=== PATIENT | male | born 1960 | race Caucasian/White ===

== ENCOUNTER 2017-06-08 11:07 | Inpatient (IN) | payer MEDICAID, OTHER ==
[~2017-06-08] VITALS: Ht 182.9 cm; Wt 157.1 kg
[2017-06-08 11:49] LABS: Basophils # (auto) 0.1 uL; Basophils % (auto) 0.7 % (0.0-2.0); CONDITION Y; DEFINITIVE SEE PRINTOUT; Eosinophils # (auto) 0.1 uL; Eosinophils % (auto) 0.7 % (0.0-7.0); Hematocrit 40.6 % (41.0-53.0); Hemoglobin 12.8 g/dL (13.5-17.5); Lymphocytes # (auto) 1.4 uL; Lymphocytes % (auto) 9.6 % (10.0-50.0); Mean Corpuscular Hemoglobin 20.8 pg (28.0-32.0); Mean Corpuscular Hgb Conc. 31.5 g/dL (32.0-36.0); Mean Corpuscular Volume 66.3 fL (80.0-100.0); Mean Platelet Volume 8.8 fL (7.4-10.4); Monocytes # (auto) 1.4 uL; Neutrophils # (auto) 11.1 uL; Platelet Count (auto) 393 10^3/uL (140-450); White Blood Cell 14.1 10^3/uL (4.4-10.8)
[2017-06-08 11:59] LABS: Red Cell Distribution Width 21.2 % (11.6-16.0)
[2017-06-08 12:08] LABS: Platelet Estimate Adequate
[2017-06-08 12:09] LABS: Anisocytosis Moderate; Hypochromia Moderate; Microcytosis Moderate; Ovalocytes FEW
[2017-06-08 12:14] LABS: Albumin 3.1 g/dL (3.4-5.0); Alkaline Phosphatase 93 U/L (45-117); Anion Gap 5 (5-15); Aspartate Aminotransferase 14 U/L (15-37); BUN/Creatinine Ratio 23.3; Bilirubin, Total 0.5 mg/dL (0.2-1.0); Blood Urea Nitrogen 14 mg/dL (7-18); Calcium 8.3 mg/dL (8.5-10.1); Carbon Dioxide 29 mmol/L (21-32); Chloride 104 mmol/L (98-107); GFR African American 178 mL/min; GFR Non-African American 147 mL/min; Glucose 87 mg/dL (74-106); INR 0.98 (0.9-1.15); Magnesium 2.4 mg/dL (1.6-2.6); Partial Thromboplastin Time 29.5 sec (22.64-33.71); Potassium 3.9 mmol/L (3.5-5.1); Prothrombin Time 10.7 sec (9.37-12.3); Sodium 138 mmol/L (136-145); Total Protein 7.4 g/dL (6.4-8.2)
[2017-06-08] MEDS ORDERED: FUROSEMIDE 40 MG/4 ML VIAL IV ONE (12:45)
[2017-06-08 12:52] LABS: B-Type Natriuretic Peptide 33.8 pg/mL (0-100)
[2017-06-08 12:58] LABS: Temperature: 24.3 C (20.0-25.0)
[2017-06-08] MEDS ORDERED: POTASSIUM CHL 10 Meq TABLET PO ONE (13:00)
[2017-06-08] MEDS ORDERED: DOCUSATE SOD 100 MG CAP PO PRN (13:15)
[2017-06-08] MEDS ORDERED: cefTRIAXone 1GM/50ML D5W 50 ML IV ONE (13:15)
[2017-06-08] MEDS ORDERED: amLODIPine BESYLATE 5 MG TAB PO ONE (13:15)
[2017-06-08] MEDS ORDERED: TEMAZEPAM 15 MG CAP PO PRN (13:15)
[2017-06-08] MEDS ORDERED: cloNIDine HCL 0.1 MG TAB PO PRN (13:15)
[2017-06-08] MEDS ORDERED: CARVEDILOL 3.125 MG TAB PO ONE (13:15)
[2017-06-08] MEDS ORDERED: ACETAMINOPHEN 325 MG TAB PO PRN (13:15)
[2017-06-08] MEDS ORDERED: ONDANSETRON HCL 4 MG/2 ML VIAL IV PRN (13:15)
[2017-06-08] MEDS ORDERED: NITROGLYCERIN 0.4 MG SL TAB SL PRN (13:15)
[2017-06-08] MEDS ORDERED: HYDROcodone-ACET 5/325MG TAB PO PRN (13:15)
[2017-06-08] MEDS ORDERED: MORPHINE SULF INJ 2 MG/ML SYRINGE 1ML IV PRN ×2 (13:15)
[2017-06-08] MEDS: SODIUM CHLOR 0.9% PF (SALINE LOCK) 10ML VIAL IV SCH (13:47)
[2017-06-08] MEDS: ENOXAPARIN SOD 40 MG/0.4 ML SYRINGE SC SCH (13:47)
[2017-06-08 14:15] VITALS: BP 106/65
[2017-06-08 16:47] VITALS: BP 138/84
[2017-06-08] MEDS: CLINDAMYCIN 300MG IV 50 ML IV SCH ×2 (18:07→21:58)
[2017-06-08] MEDS: FUROSEMIDE 40 MG/4 ML VIAL IV SCH (18:26)
[2017-06-08] MEDS: BOOST PLUS 8 ounce PO SCH (18:26)
[2017-06-08] MEDS: ALBUTEROL SULF 2.5 MG/0.5ML(0.5%) NEB SOLN NEB SCH (19:34)
[2017-06-08] MEDS: IPRATROPIUM BROM 0.5 MG/2.5ML INH SOL NEB SCH (19:34)
[2017-06-08 19:41] VITALS: BP 138/84
[2017-06-08 21:40] VITALS: BP 130/83
[2017-06-08] MEDS: POTASSIUM CHL 10 Meq TABLET PO SCH (21:57)
[2017-06-08] MEDS: CARVEDILOL 3.125 MG TAB PO SCH (21:58)
[2017-06-09] MEDS: ALBUTEROL SULF 2.5 MG/0.5ML(0.5%) NEB SOLN NEB SCH ×4 (00:09→19:38)
[2017-06-09] MEDS: IPRATROPIUM BROM 0.5 MG/2.5ML INH SOL NEB SCH ×4 (00:09→19:38)
[2017-06-09] MEDS: SODIUM CHLOR 0.9% PF (SALINE LOCK) 10ML VIAL IV SCH ×4 (01:59→23:03)
[2017-06-09 05:16] VITALS: BP 125/75
[2017-06-09] MEDS: CLINDAMYCIN 300MG IV 50 ML IV SCH ×3 (05:49→23:03)
[2017-06-09] MEDS: FUROSEMIDE 40 MG/4 ML VIAL IV SCH ×2 (05:50→17:59)
[2017-06-09 06:29] LABS: Basophils # (auto) 0 uL; Basophils % (auto) 0.3 % (0.0-2.0); CONDITION Y; DEFINITIVE SEE PRINTOUT; Eosinophils # (auto) 0.1 uL; Eosinophils % (auto) 0.5 % (0.0-7.0); Hematocrit 39.8 % (41.0-53.0); Hemoglobin 12.2 g/dL (13.5-17.5); Lymphocytes % (auto) 8.3 % (10.0-50.0); Mean Corpuscular Hemoglobin 20.7 pg (28.0-32.0); Mean Corpuscular Hgb Conc. 30.8 g/dL (32.0-36.0); Mean Corpuscular Volume 67.1 fL (80.0-100.0); Mean Platelet Volume 9.4 fL (7.4-10.4); Monocytes % (auto) 7.8 % (0.0-12.0); Neutrophils # (auto) 10.5 uL; Neutrophils % (auto) 83.1 % (37.0-80.0); Platelet Count (auto) 358 10^3/uL (140-450); White Blood Cell 12.6 10^3/uL (4.4-10.8)
[2017-06-09 06:35] LABS: Red Cell Distribution Width 20.9 % (11.6-16.0)
[2017-06-09 06:49] LABS: Bilirubin, Total 0.4 mg/dL (0.2-1.0); Calcium 8.1 mg/dL (8.5-10.1); Total Protein 7.2 g/dL (6.4-8.2)
[2017-06-09 06:53] LABS: Platelet Estimate Adequate
[2017-06-09 06:55] LABS: Anisocytosis Moderate; Hypochromia Moderate; Microcytosis Marked
[2017-06-09 06:56] LABS: Hypersegmented Neutrophils Present; Ovalocytes FEW
[2017-06-09 07:00] LABS: Urine Bilirubin Negative (Negative); Urine Blood Negative /uL (Negative); Urine Color Yellow (Yellow); Urine Glucose Normal (Normal); Urine Mucus FEW (None Seen); Urine Nitrite Negative (Negative); Urine RBC 2 /hpf (0 - 3); Urine Squamous Epithelial Cell FEW /hpf (<5); Urine Urobilinogen Normal (Negative)
[2017-06-09 07:01] LABS: Urine Ketone 1+ (Negative)
[2017-06-09 08:00] VITALS: BP 127/78
[2017-06-09] MEDS: BOOST PLUS 8 ounce PO SCH ×3 (08:00→18:00)
[2017-06-09] MEDS: cefTRIAXone 1GM/50ML D5W 50 ML IV SCH (10:31)
[2017-06-09] MEDS: POTASSIUM CHL 10 Meq TABLET PO SCH ×2 (10:32→23:05)
[2017-06-09] MEDS: CARVEDILOL 3.125 MG TAB PO SCH ×2 (10:32→23:04)
[2017-06-09] MEDS: MULTIPLE VITAMIN TAB PO SCH (10:33)
[2017-06-09] MEDS: amLODIPine BESYLATE 5 MG TAB PO SCH (10:33)
[2017-06-09] MEDS: ENOXAPARIN SOD 40 MG/0.4 ML SYRINGE SC SCH (11:25)
[2017-06-09 13:30] VITALS: BP 128/81
[2017-06-09 17:21] VITALS: BP 136/60
[2017-06-09 22:00] VITALS: BP 142/83
[2017-06-10] MEDS: IPRATROPIUM BROM 0.5 MG/2.5ML INH SOL NEB SCH ×4 (00:10→19:33)
[2017-06-10] MEDS: ALBUTEROL SULF 2.5 MG/0.5ML(0.5%) NEB SOLN NEB SCH ×4 (00:10→19:33)
[2017-06-10 05:00] VITALS: BP 146/81
[2017-06-10] MEDS: CLINDAMYCIN 300MG IV 50 ML IV SCH ×2 (05:48→14:00)
[2017-06-10] MEDS: SODIUM CHLOR 0.9% PF (SALINE LOCK) 10ML VIAL IV SCH ×4 (05:49→21:17)
[2017-06-10] MEDS: FUROSEMIDE 40 MG/4 ML VIAL IV SCH ×2 (05:49→18:46)
[2017-06-10 06:44] LABS: Basophils # (auto) 0 uL; Basophils % (auto) 0.4 % (0.0-2.0); CONDITION Y; DEFINITIVE SEE PRINTOUT; Eosinophils # (auto) 0.1 uL; Eosinophils % (auto) 0.6 % (0.0-7.0); Hematocrit 39.5 % (41.0-53.0); Hemoglobin 12.2 g/dL (13.5-17.5); Lymphocytes # (auto) 1.2 uL; Lymphocytes % (auto) 11.4 % (10.0-50.0); Mean Corpuscular Hemoglobin 20.8 pg (28.0-32.0); Mean Corpuscular Volume 67.2 fL (80.0-100.0); Mean Platelet Volume 9.3 fL (7.4-10.4); Monocytes # (auto) 0.8 uL; Monocytes % (auto) 7.8 % (0.0-12.0); Neutrophils # (auto) 8.6 uL; Neutrophils % (auto) 79.8 % (37.0-80.0); Platelet Count (auto) 358 10^3/uL (140-450); White Blood Cell 10.8 10^3/uL (4.4-10.8)
[2017-06-10 06:58] LABS: Red Cell Distribution Width 21.4 % (11.6-16.0)
[2017-06-10 07:16] LABS: Potassium 4.3 mmol/L (3.5-5.1)
[2017-06-10 07:29] LABS: BUN/Creatinine Ratio 31.1; Calcium 8.4 mg/dL (8.5-10.1)
[2017-06-10 07:34] LABS: Bilirubin, Total 0.4 mg/dL (0.2-1.0); Total Protein 7.1 g/dL (6.4-8.2)
[2017-06-10 07:40] LABS: Microcytosis Marked; Platelet Estimate Adequate
[2017-06-10 07:41] LABS: Anisocytosis Moderate; Ovalocytes MODERATE
[2017-06-10 07:42] LABS: Hypochromia Moderate
[2017-06-10] MEDS: BOOST PLUS 8 ounce PO SCH ×3 (08:00→18:29)
[2017-06-10 09:00] VITALS: BP 127/93
[2017-06-10] MEDS: cefTRIAXone 1GM/50ML D5W 50 ML IV SCH (09:00)
[2017-06-10] MEDS: CARVEDILOL 3.125 MG TAB PO SCH ×2 (09:59→21:17)
[2017-06-10] MEDS: amLODIPine BESYLATE 5 MG TAB PO SCH (09:59)
[2017-06-10] MEDS: MULTIPLE VITAMIN TAB PO SCH (09:59)
[2017-06-10] MEDS: POTASSIUM CHL 10 Meq TABLET PO SCH (09:59)
[2017-06-10] MEDS: ENOXAPARIN SOD 40 MG/0.4 ML SYRINGE SC SCH (10:00)
[2017-06-10 13:00] VITALS: BP 140/68
[2017-06-10 17:00] VITALS: BP 133/87
[2017-06-10] MEDS: POTASSIUM CHL 20 Meq TABLET PO SCH (21:17)
[2017-06-10 22:00] VITALS: BP 118/76
[2017-06-10] MEDS: CEPHALEXIN 250 MG CAP PO SCH (22:43)
[2017-06-11] MEDS: methylPREDNISolone SOD SUCC 125 MG/2 ML VL IV SCH ×5 (00:11→23:37)
[2017-06-11 05:00] VITALS: BP 165/96
[2017-06-11] MEDS: FUROSEMIDE 40 MG/4 ML VIAL IV SCH ×3 (05:31→17:25)
[2017-06-11] MEDS: SODIUM CHLOR 0.9% PF (SALINE LOCK) 10ML VIAL IV SCH ×3 (05:31→21:25)
[2017-06-11] MEDS: CEPHALEXIN 250 MG CAP PO SCH ×4 (05:32→23:06)
[2017-06-11] MEDS: IPRATROPIUM BROM 0.5 MG/2.5ML INH SOL NEB SCH ×4 (06:24→19:01)
[2017-06-11] MEDS: ALBUTEROL SULF 2.5 MG/0.5ML(0.5%) NEB SOLN NEB SCH ×4 (06:24→19:01)
[2017-06-11] MEDS: BOOST PLUS 8 ounce PO SCH ×3 (08:00→17:33)
[2017-06-11 09:00] VITALS: BP 158/98
[2017-06-11] MEDS: ENOXAPARIN SOD 40 MG/0.4 ML SYRINGE SC SCH (10:00)
[2017-06-11] MEDS: MULTIPLE VITAMIN TAB PO SCH (10:23)
[2017-06-11] MEDS: POTASSIUM CHL 20 Meq TABLET PO SCH ×2 (10:23→21:25)
[2017-06-11] MEDS: CARVEDILOL 3.125 MG TAB PO SCH ×2 (10:24→21:25)
[2017-06-11] MEDS: METOLAZONE 5 MG TAB PO SCH (10:24)
[2017-06-11] MEDS: amLODIPine BESYLATE 5 MG TAB PO SCH (10:25)
[2017-06-11 13:00] VITALS: BP 156/89
[2017-06-11] MEDS ORDERED: IPRATROPIUM BROM 0.5 MG/2.5ML INH SOL ONE (18:01)
[2017-06-11] MEDS ORDERED: ALBUTEROL SULF 2.5 MG/0.5ML(0.5%) NEB SOLN ONE (18:01)
[2017-06-11 18:06] VITALS: BP 145/79
[2017-06-11] MEDS ORDERED: DILTIAZEM HCL 25 MG/5 ML VIAL IV ONE (20:15)
[2017-06-11 20:33] VITALS: BP 145/79
[2017-06-11 21:26] VITALS: BP 145/80
[2017-06-11] MEDS ORDERED: DIGOXIN (250MCG/ML) 2 ML AMPULE IV ONE (22:15)
[2017-06-12] MEDS ORDERED: DILTIAZEM HCL 25 MG/5 ML VIAL IV ONE (00:15)
[2017-06-12 05:00] VITALS: BP 117/69
[2017-06-12] MEDS: methylPREDNISolone SOD SUCC 125 MG/2 ML VL IV SCH ×3 (05:26→18:45)
[2017-06-12] MEDS: SODIUM CHLOR 0.9% PF (SALINE LOCK) 10ML VIAL IV SCH ×3 (05:26→22:12)
[2017-06-12] MEDS: FUROSEMIDE 40 MG/4 ML VIAL IV SCH ×2 (05:26→18:45)
[2017-06-12] MEDS: CEPHALEXIN 250 MG CAP PO SCH ×4 (05:26→22:13)
[2017-06-12] MEDS: ALBUTEROL SULF 2.5 MG/0.5ML(0.5%) NEB SOLN NEB SCH ×4 (06:33→19:13)
[2017-06-12] MEDS: IPRATROPIUM BROM 0.5 MG/2.5ML INH SOL NEB SCH ×4 (06:34→19:13)
[2017-06-12 06:48] LABS: BUN/Creatinine Ratio 30.5; Calcium 9.4 mg/dL (8.5-10.1)
[2017-06-12] MEDS: BOOST PLUS 8 ounce PO SCH ×3 (08:00→18:00)
[2017-06-12 08:05] VITALS: BP 134/92
[2017-06-12] MEDS: ENOXAPARIN SOD 40 MG/0.4 ML SYRINGE SC SCH (10:00)
[2017-06-12] MEDS: amLODIPine BESYLATE 5 MG TAB PO SCH (11:30)
[2017-06-12] MEDS: METOLAZONE 5 MG TAB PO SCH (11:30)
[2017-06-12] MEDS: MULTIPLE VITAMIN TAB PO SCH (11:30)
[2017-06-12] MEDS: CARVEDILOL 3.125 MG TAB PO SCH ×2 (11:31→22:11)
[2017-06-12] MEDS: POTASSIUM CHL 20 Meq TABLET PO SCH ×2 (11:31→22:10)
[2017-06-12 12:00] VITALS: BP 102/72
[2017-06-12 17:26] VITALS: BP 106/64
[2017-06-12 19:09] LABS: Allen Test Yes; Base Excess 11.1 mmol/L (-2.0-2.0); Blood 02Sat 94.9 % (96-100); Blood COHb 0.5 % (0.5-1.5); Blood MetHb 0.3 % (0.0-1.5); HCO3 37.3 mmol/L (22-26.0); HHb 5.1 % (0.0-5.0); MODE NASAL CANNULA; O2Hb 94.1 % (94.0-97.0); PCO2 55.1 mmHg (35.0-45.0); PCO2(T) 55.1 mmHg (35.0-45.0); Room 0249T; Sample Type Arterial; pH 7.448 (7.350-7.450)
[2017-06-12 22:00] VITALS: BP 150/67
[2017-06-12] MEDS: AMIODARONE HCL 200 MG TAB PO SCH (22:12)
[2017-06-12] MEDS: APIXABAN 5 MG TAB PO SCH (22:12)
[2017-06-13] MEDS: methylPREDNISolone SOD SUCC 125 MG/2 ML VL IV SCH ×5 (00:03→23:39)
[2017-06-13 04:51] VITALS: BP 121/75
[2017-06-13] MEDS: SODIUM CHLOR 0.9% PF (SALINE LOCK) 10ML VIAL IV SCH ×3 (06:23→21:54)
[2017-06-13] MEDS: ALBUTEROL SULF 2.5 MG/0.5ML(0.5%) NEB SOLN NEB SCH ×4 (06:24→19:24)
[2017-06-13] MEDS: FUROSEMIDE 40 MG/4 ML VIAL IV SCH ×2 (06:24→18:00)
[2017-06-13] MEDS: IPRATROPIUM BROM 0.5 MG/2.5ML INH SOL NEB SCH ×4 (06:24→19:24)
[2017-06-13] MEDS: CEPHALEXIN 250 MG CAP PO SCH ×4 (06:25→23:39)
[2017-06-13] MEDS: BOOST PLUS 8 ounce PO SCH ×3 (08:00→18:00)
[2017-06-13 09:00] VITALS: BP 125/88
[2017-06-13] MEDS: amLODIPine BESYLATE 5 MG TAB PO SCH (09:24)
[2017-06-13] MEDS: APIXABAN 5 MG TAB PO SCH ×2 (09:24→21:55)
[2017-06-13] MEDS: METOLAZONE 5 MG TAB PO SCH (09:25)
[2017-06-13] MEDS: AMIODARONE HCL 200 MG TAB PO SCH ×2 (09:25→21:54)
[2017-06-13] MEDS: POTASSIUM CHL 20 Meq TABLET PO SCH ×2 (09:25→21:55)
[2017-06-13] MEDS: CARVEDILOL 3.125 MG TAB PO SCH ×2 (09:26→21:57)
[2017-06-13] MEDS: MULTIPLE VITAMIN TAB PO SCH (10:00)
[2017-06-13] MEDS ORDERED: DIGOXIN (250MCG/ML) 2 ML AMPULE IV ONE (11:00)
[2017-06-13 13:00] VITALS: BP 127/71
[2017-06-13 17:00] VITALS: BP 112/88
[2017-06-13] MEDS: acetaZOLAMIDE 250 MG TAB PO SCH (17:16)
[2017-06-13 22:00] VITALS: BP 112/81
[2017-06-14 04:30] VITALS: BP 131/72
[2017-06-14] MEDS: CEPHALEXIN 250 MG CAP PO SCH ×3 (06:00→17:24)
[2017-06-14] MEDS: SODIUM CHLOR 0.9% PF (SALINE LOCK) 10ML VIAL IV SCH ×2 (06:08→16:18)
[2017-06-14] MEDS: methylPREDNISolone SOD SUCC 125 MG/2 ML VL IV SCH ×3 (06:09→17:24)
[2017-06-14] MEDS: FUROSEMIDE 40 MG/4 ML VIAL IV SCH ×2 (06:09→17:24)
[2017-06-14] MEDS: IPRATROPIUM BROM 0.5 MG/2.5ML INH SOL NEB SCH ×4 (06:39→19:15)
[2017-06-14] MEDS: ALBUTEROL SULF 2.5 MG/0.5ML(0.5%) NEB SOLN NEB SCH ×4 (06:39→19:15)
[2017-06-14 06:47] LABS: BUN/Creatinine Ratio 39.3; Calcium 9.2 mg/dL (8.5-10.1); Potassium 3.6 mmol/L (3.5-5.1)
[2017-06-14 08:00] VITALS: BP 143/63
[2017-06-14] MEDS: BOOST PLUS 8 ounce PO SCH ×3 (08:00→17:25)
[2017-06-14 08:07] LABS: INR 1.1 (0.9-1.15); Partial Thromboplastin Time 27.1 sec (22.64-33.71)
[2017-06-14 08:07] LABS: CONDITION Y; DEFINITIVE SEE PRINTOUT; Hematocrit 49.5 % (41.0-53.0); Hemoglobin 15.4 g/dL (13.5-17.5); Mean Corpuscular Hemoglobin 20.8 pg (28.0-32.0); Mean Corpuscular Hgb Conc. 31.1 g/dL (32.0-36.0); Mean Corpuscular Volume 66.8 fL (80.0-100.0); Platelet Count (auto) 332 10^3/uL (140-450); SUSPECT SEE PRINTOUT; White Blood Cell 22.7 10^3/uL (4.4-10.8)
[2017-06-14 08:12] LABS: Red Cell Distribution Width 21.4 % (11.6-16.0)
[2017-06-14 08:14] LABS: Metamyelocytes % 0; Myelocytes % 0; Promyelocytes % 0; Reactive Lymphocytes 0
[2017-06-14 08:32] LABS: Anisocytosis Slight; Microcytosis Moderate
[2017-06-14 08:33] LABS: Hypochromia Slight; Platelet Estimate Adequate
[2017-06-14 09:00] VITALS: BP 143/63
[2017-06-14] MEDS ORDERED: FLUMAZENIL 0.1 MG/ML INJ 10ML MDV IV ONE (09:08)
[2017-06-14] MEDS ORDERED: MIDAZOLAM HCL 1MG/1ML-2 ML VIAL ONE (09:08)
[2017-06-14] MEDS ORDERED: fentaNYL CITRATE 100 MCG/2 ML VL ONE (09:08)
[2017-06-14] MEDS ORDERED: NALOXONE HCL 0.4 MG/ML VIAL ONE (09:09)
[2017-06-14] MEDS ORDERED: LIDOCAINE VISCOUS 2% 15ML UD ONE (09:12)
[2017-06-14] MEDS: acetaZOLAMIDE 250 MG TAB PO SCH (11:50)
[2017-06-14] MEDS: MULTIPLE VITAMIN TAB PO SCH (11:50)
[2017-06-14] MEDS: amLODIPine BESYLATE 5 MG TAB PO SCH (11:51)
[2017-06-14] MEDS: AMIODARONE HCL 200 MG TAB PO SCH (11:51)
[2017-06-14] MEDS: METOLAZONE 5 MG TAB PO SCH (11:51)
[2017-06-14] MEDS: APIXABAN 5 MG TAB PO SCH (11:52)
[2017-06-14] MEDS: POTASSIUM CHL 20 Meq TABLET PO SCH (11:52)
[2017-06-14] MEDS: CARVEDILOL 3.125 MG TAB PO SCH (11:52)
[2017-06-14 13:00] VITALS: BP 130/89
[2017-06-14 15:43] LABS: Allen Test Yes; Base Excess 4.6 mmol/L (-2.0-2.0); Blood 02Sat 86.5 % (96-100); Blood COHb 0.8 % (0.5-1.5); Blood MetHb 0.3 % (0.0-1.5); HCO3 29.7 mmol/L (22-26.0); HHb 13.4 % (0.0-5.0); MODE ROOM AIR; O2Hb 85.5 % (94.0-97.0); PCO2 45.6 mmHg (35.0-45.0); PCO2(T) 45.6 mmHg (35.0-45.0); PO2 55.2 mmHg (80.0-100.0); PO2(T) 55.2 mmHg (80.0-100.0); Room 0249T; Sample Type Arterial; pH 7.432 (7.350-7.450)
[2017-06-14 16:04] VITALS: BP 123/72
[2017-06-14 17:12] VITALS: BP 123/72
== END 2017-06-14 19:15 | disposition home or self-care (01) | DRG 140 ==
LOC: ER 11:07 → TELE 11:08 → TELE-E-ADS 15:09 → TELE-EAST 16:36
PROVIDERS: ADMIT Internal Medicine; ATTEND Internal Medicine Pulmonary Disease
PROC: B246ZZ4 Ultrasonography of Right and Left Heart, Transesophageal (ICD-10-PCS; principal; 2017-06-14)
PROC: 5A2204Z Restoration of Cardiac Rhythm, Single (ICD-10-PCS; 2017-06-14)
DX: J44.1 Chronic obstructive pulmonary disease with (acute) exacerbation (principal); J96.02 Acute respiratory failure with hypercapnia; I50.43 Acute on chronic combined systolic (congestive) and diastolic (congestive) heart failure; I27.81 Cor pulmonale (chronic); E44.0 Moderate protein-calorie malnutrition; L03.115 Cellulitis of right lower limb; Z68.42 Body mass index [BMI] 45.0-49.9, adult; L03.116 Cellulitis of left lower limb; I48.91 Unspecified atrial fibrillation; I11.0 Hypertensive heart disease with heart failure; E88.09 Other disorders of plasma-protein metabolism, not elsewhere classified; I08.1 Rheumatic disorders of both mitral and tricuspid valves; F17.210 Nicotine dependence, cigarettes, uncomplicated; E66.01 Morbid (severe) obesity due to excess calories; D50.9 Iron deficiency anemia, unspecified; I34.0 Nonrheumatic mitral (valve) insufficiency; Z72.0 Tobacco use; Z79.01 Long term (current) use of anticoagulants; Z82.3 Family history of stroke; Z82.49 Family history of ischemic heart disease and other diseases of the circulatory system; Z87.11 Personal history of peptic ulcer disease; Z90.49 Acquired absence of other specified parts of digestive tract; Z71.89 Other specified counseling
CPT/HCPCS: 36415; 36600; 71010; 80048; 80053; 81001; 82805; 83540; 83735; 83880; 84443; 84484; 85007; 85025; 85027; 85610; 85730; 87040; 87086; 93005; 93306; 93312; 93923; 93970; 94640; 94761; 96365; 96375; 97110; 97116; 97530; J0696; J2250; J3490

== ENCOUNTER 2017-07-20 22:49 | Inpatient (IN) | payer MEDICAID ==
[~2017-07-20] VITALS: Ht 188 cm; Wt 154.8 kg
[2017-07-20 23:09] LABS: Basophils # (auto) 0.1 uL; Basophils % (auto) 0.4 % (0.0-2.0); CONDITION Y; DEFINITIVE SEE PRINTOUT; Eosinophils # (auto) 0.2 uL; Eosinophils % (auto) 1.4 % (0.0-7.0); Hematocrit 41.3 % (41.0-53.0); Hemoglobin 12.9 g/dL (13.5-17.5); Lymphocytes # (auto) 1.6 uL; Lymphocytes % (auto) 12.7 % (10.0-50.0); Mean Corpuscular Hemoglobin 21.6 pg (28.0-32.0); Mean Corpuscular Hgb Conc. 31.3 g/dL (32.0-36.0); Monocytes % (auto) 7.9 % (0.0-12.0); Neutrophils # (auto) 9.6 uL; Neutrophils % (auto) 77.6 % (37.0-80.0); Platelet Count (auto) 299 10^3/uL (140-450); SUSPECT SEE PRINTOUT; White Blood Cell 12.4 10^3/uL (4.4-10.8)
[2017-07-20 23:19] LABS: Red Cell Distribution Width 26.1 % (11.6-16.0)
[2017-07-20 23:27] LABS: Albumin 2.9 g/dL (3.4-5.0); Anion Gap 4 (5-15); BUN/Creatinine Ratio 28.2; Blood Urea Nitrogen 20 mg/dL (7-18); Calcium 8.2 mg/dL (8.5-10.1); Carbon Dioxide 34 mmol/L (21-32); Chloride 105 mmol/L (98-107); GFR African American 147 mL/min; GFR Non-African American 121 mL/min; Glucose 104 mg/dL (74-106); Magnesium 2.3 mg/dL (1.6-2.6); Potassium 4.4 mmol/L (3.5-5.1); Sodium 143 mmol/L (136-145)
[2017-07-20 23:32] LABS: Alkaline Phosphatase 81 U/L (45-117); Aspartate Aminotransferase 12 U/L (15-37); Bilirubin, Total 0.4 mg/dL (0.2-1.0); Total Protein 6.5 g/dL (6.4-8.2)
[2017-07-20 23:36] LABS: B-Type Natriuretic Peptide 64.43 pg/mL (0-100)
[2017-07-20 23:41] LABS: Temperature: 24.1 C (20.0-25.0)
[2017-07-21 00:05] LABS: Platelet Estimate Adequate
[2017-07-21 00:06] LABS: Anisocytosis Moderate
[2017-07-21 00:07] LABS: Hypersegmented Neutrophils Present; Hypochromia Slight; Microcytosis Marked; Ovalocytes FEW
[2017-07-21] MEDS ORDERED: FUROSEMIDE 20 MG/2 ML VIAL IV ONE ×2 (00:15→14:00)
[2017-07-21 01:01] LABS: Urine Bilirubin Negative (Negative); Urine Blood TRACE /uL (Negative); Urine Color Yellow (Yellow); Urine Glucose Normal (Normal); Urine Ketone Negative (Negative); Urine Nitrite Negative (Negative); Urine RBC 8 /hpf (0 - 3); Urine Urobilinogen Normal (Negative); Urine pH 6.5 (5.0-8.0)
[2017-07-21] MEDS ORDERED: HYDROcodone-ACET 5/325MG TAB PO PRN (04:45)
[2017-07-21] MEDS ORDERED: TEMAZEPAM 15 MG CAP PO PRN (04:45)
[2017-07-21] MEDS ORDERED: NITROGLYCERIN 0.4 MG SL TAB SL PRN (04:45)
[2017-07-21] MEDS ORDERED: ONDANSETRON HCL 4 MG/2 ML VIAL IV PRN (04:45)
[2017-07-21] MEDS ORDERED: MORPHINE SULF INJ 2 MG/ML SYRINGE 1ML IV PRN ×2 (04:45)
[2017-07-21] MEDS ORDERED: ACETAMINOPHEN 325 MG TAB PO PRN (04:45)
[2017-07-21 09:13] VITALS: BP 150/85
[2017-07-21 09:28] VITALS: BP 150/85
[2017-07-21] MEDS: FAMOTIDINE 20 MG TAB PO SCH ×2 (10:00→21:50)
[2017-07-21] MEDS: ASPirin 81 mg TAB PO SCH (10:00)
[2017-07-21] MEDS: FUROSEMIDE 40 MG TAB PO SCH (10:00)
[2017-07-21] MEDS ORDERED: ENOXAPARIN SOD 40 MG/0.4 ML SYRINGE SC SCH (10:00)
[2017-07-21] MEDS: AMIODARONE HCL 200 MG TAB PO SCH (11:32)
[2017-07-21] MEDS: APIXABAN 5 MG TAB PO SCH ×2 (11:33→21:50)
[2017-07-21] MEDS: METOPROLOL SUCCINATE XL 50 MG TAB PO SCH (11:33)
[2017-07-21 17:00] VITALS: BP 154/63
[2017-07-21] MEDS: BOOST PLUS 8 ounce PO SCH (17:47)
[2017-07-21 22:41] VITALS: BP 150/80
[2017-07-22] VITALS (7 sets, daily range): BP systolic 113–147; BP diastolic 68–92
[2017-07-22 05:38] LABS: Albumin 3.1 g/dL (3.4-5.0); Anion Gap 4 (5-15); Aspartate Aminotransferase 12 U/L (15-37); BUN/Creatinine Ratio 24.2; Blood Urea Nitrogen 16 mg/dL (7-18); Calcium 8.2 mg/dL (8.5-10.1); Carbon Dioxide 36 mmol/L (21-32); Chloride 102 mmol/L (98-107); GFR African American 159 mL/min; GFR Non-African American 132 mL/min; Glucose 75 mg/dL (74-106); Potassium 4.9 mmol/L (3.5-5.1); Sodium 142 mmol/L (136-145)
[2017-07-22 05:39] LABS: Basophils # (auto) 0 uL; Basophils % (auto) 0.1 % (0.0-2.0); CONDITION Y; DEFINITIVE SEE PRINTOUT; Eosinophils # (auto) 0.1 uL; Eosinophils % (auto) 0.7 % (0.0-7.0); Hematocrit 43.4 % (41.0-53.0); Hemoglobin 13.3 g/dL (13.5-17.5); Lymphocytes # (auto) 1.1 uL; Lymphocytes % (auto) 8.4 % (10.0-50.0); Mean Corpuscular Hemoglobin 21.4 pg (28.0-32.0); Mean Corpuscular Hgb Conc. 30.6 g/dL (32.0-36.0); Mean Corpuscular Volume 70.1 fL (80.0-100.0); Mean Platelet Volume 9.2 fL (7.4-10.4); Monocytes # (auto) 0.9 uL; Monocytes % (auto) 6.8 % (0.0-12.0); Neutrophils # (auto) 11.3 uL; Platelet Count (auto) 342 10^3/uL (140-450); SUSPECT SEE PRINTOUT; White Blood Cell 13.5 10^3/uL (4.4-10.8)
[2017-07-22 05:43] LABS: Alkaline Phosphatase 94 U/L (45-117); Bilirubin, Total 0.4 mg/dL (0.2-1.0); Total Protein 6.9 g/dL (6.4-8.2)
[2017-07-22 07:33] LABS: Anisocytosis Moderate; Hypochromia Slight; Microcytosis Moderate; Ovalocytes FEW; Platelet Estimate Adequate
[2017-07-22] MEDS: BOOST PLUS 8 ounce PO SCH ×3 (08:00→18:00)
[2017-07-22] MEDS: AMIODARONE HCL 200 MG TAB PO SCH (10:02)
[2017-07-22] MEDS: APIXABAN 5 MG TAB PO SCH ×2 (10:04→22:20)
[2017-07-22] MEDS: FUROSEMIDE 40 MG TAB PO SCH (10:05)
[2017-07-22] MEDS: FAMOTIDINE 20 MG TAB PO SCH ×2 (10:05→22:20)
[2017-07-22] MEDS: ASPirin 81 mg TAB PO SCH (10:05)
[2017-07-22] MEDS: METOPROLOL SUCCINATE XL 50 MG TAB PO SCH (10:06)
[2017-07-22] MEDS ORDERED: ALBUTEROL SULF 2.5 MG/0.5ML(0.5%) NEB SOLN NEB PRN (11:15)
[2017-07-23 03:57] VITALS: BP 140/69
[2017-07-23 05:27] VITALS: BP 133/85
[2017-07-23 06:16] LABS: Basophils # (auto) 0.1 uL; Basophils % (auto) 0.5 % (0.0-2.0); CONDITION Y; DEFINITIVE SEE PRINTOUT; Eosinophils # (auto) 0.1 uL; Eosinophils % (auto) 1.1 % (0.0-7.0); Hematocrit 42.8 % (41.0-53.0); Lymphocytes # (auto) 1.7 uL; Lymphocytes % (auto) 15.1 % (10.0-50.0); Mean Corpuscular Hemoglobin 21.3 pg (28.0-32.0); Mean Corpuscular Hgb Conc. 30.3 g/dL (32.0-36.0); Mean Corpuscular Volume 70.3 fL (80.0-100.0); Mean Platelet Volume 8.9 fL (7.4-10.4); Monocytes # (auto) 1.2 uL; Monocytes % (auto) 10.6 % (0.0-12.0); Neutrophils # (auto) 8.2 uL; Neutrophils % (auto) 72.7 % (37.0-80.0); Platelet Count (auto) 318 10^3/uL (140-450); SUSPECT SEE PRINTOUT; White Blood Cell 11.3 10^3/uL (4.4-10.8)
[2017-07-23 06:35] LABS: BUN/Creatinine Ratio 28.6; Calcium 8.5 mg/dL (8.5-10.1); Potassium 4.3 mmol/L (3.5-5.1)
[2017-07-23 07:08] LABS: Red Cell Distribution Width 25.9 % (11.6-16.0)
[2017-07-23 08:15] LABS: Microcytosis Moderate
[2017-07-23 08:16] LABS: Anisocytosis Moderate; Hypochromia Slight; Ovalocytes FEW; Platelet Estimate Adequate
[2017-07-23 08:50] VITALS: BP 149/83
[2017-07-23] MEDS: FAMOTIDINE 20 MG TAB PO SCH (09:31)
[2017-07-23] MEDS: AMIODARONE HCL 200 MG TAB PO SCH (09:31)
[2017-07-23] MEDS: APIXABAN 5 MG TAB PO SCH (09:31)
[2017-07-23] MEDS: FUROSEMIDE 40 MG TAB PO SCH (09:32)
[2017-07-23] MEDS: METOPROLOL SUCCINATE XL 50 MG TAB PO SCH (09:33)
[2017-07-23] MEDS: ASPirin 81 mg TAB PO SCH (09:33)
[2017-07-23] MEDS: BOOST PLUS 8 ounce PO SCH ×3 (09:33→18:00)
[2017-07-23] MEDS ORDERED: DOXYCYCLINE 100 MG TAB/CAP PO SCH (10:00)
[2017-07-23] MEDS ORDERED: FUROSEMIDE 40 MG/4 ML VIAL IV SCH (10:30)
[2017-07-23] MEDS ORDERED: LISINOPRIL 5 MG TAB PO SCH (10:30)
[2017-07-23 13:00] VITALS: BP 147/70
[2017-07-23 16:21] VITALS: BP 149/83
[2017-07-28] MEDS ORDERED: APIXABAN 5 MG TAB PO SCH (10:00)
== END 2017-07-23 18:55 | disposition home or self-care (01) | DRG 133 ==
LOC: ER 22:49 → TELE 22:50 → TELE-E-ADS 07-21 08:22 → TELE-WESTW 07-21 11:10
PROVIDERS: ADMIT Nurse Practitioner; ATTEND Family Medicine
DX: J96.90 Respiratory failure, unspecified, unspecified whether with hypoxia or hypercapnia (principal); I50.43 Acute on chronic combined systolic (congestive) and diastolic (congestive) heart failure; E44.0 Moderate protein-calorie malnutrition; L03.115 Cellulitis of right lower limb; E66.2 Morbid (severe) obesity with alveolar hypoventilation; Z68.42 Body mass index [BMI] 45.0-49.9, adult; L03.116 Cellulitis of left lower limb; I48.0 Paroxysmal atrial fibrillation; I11.0 Hypertensive heart disease with heart failure; E78.5 Hyperlipidemia, unspecified; J45.909 Unspecified asthma, uncomplicated; I48.2 Chronic atrial fibrillation; J44.9 Chronic obstructive pulmonary disease, unspecified; Z82.49 Family history of ischemic heart disease and other diseases of the circulatory system; Z82.3 Family history of stroke; Z98.84 Bariatric surgery status
CPT/HCPCS: 36415; 71010; 80048; 80053; 81001; 83735; 83880; 84484; 85025; 93005; 94640; 96372; 96374

== ENCOUNTER → 2017-10-01 | Outpatient (CLI) | payer MEDICAID | END | disposition home or self-care (01) | LOC: RT 08:55 | PROVIDERS: ATTEND Internal Medicine Pulmonary Disease | DX: J44.9 Chronic obstructive pulmonary disease, unspecified (principal); I11.0 Hypertensive heart disease with heart failure; I50.9 Heart failure, unspecified | CPT/HCPCS: 94060; 94640 ==

== ENCOUNTER → 2019-08-15 | Outpatient (CLI) | payer MEDICARE, MEDICAID ==
[~2019-08-15] MED LIST: ALBUTEROL SULF 2.5 MG/0.5ML(0.5%) NEB SOLN ONE
== END | disposition home or self-care (01) ==
LOC: RT 08:47
PROVIDERS: ATTEND Internal Medicine Pulmonary Disease
DX: R06.02 Shortness of breath (principal)
CPT/HCPCS: 36600; 82805; 94060; J7611

== ENCOUNTER 2019-09-01 08:30 | Day surgery (SDC) | payer MEDICARE, MEDICAID ==
[2019-08-28 09:53] LABS: Basophils # (auto) 0.1 uL; Basophils % (auto) 0.9 % (0.0-2.0); Eosinophils # (auto) 0.2 uL; Eosinophils % (auto) 2.7 % (0.0-7.0); Hematocrit 48.8 % (41.0-53.0); Hemoglobin 16.3 g/dL (13.5-17.5); Lymphocytes % (auto) 24.2 % (10.0-50.0); Mean Corpuscular Hgb Conc. 33.5 g/dL (32.0-36.0); Mean Corpuscular Volume 83.7 fL (80.0-100.0); Monocytes # (auto) 0.6 uL; Monocytes % (auto) 7.4 % (0.0-12.0); Neutrophils # (auto) 5.3 uL; Neutrophils % (auto) 64.8 % (37.0-80.0); Nucleated Red Blood Cells % 0.1 %; Platelet Count (auto) 206 10^3/uL (140-450); Red Blood Cells 5.83 10^6/uL (4.5-5.90); Red Cell Distribution Width 15.3 % (11.8-14.3); White Blood Cell 8.3 10^3/uL (4.4-10.8)
[2019-08-28 10:44] LABS: INR 0.95 (0.9-1.15); Partial Thromboplastin Time 27.9 sec (23.64-32.05)
[~2019-09-01] VITALS: Ht 182.9 cm; Wt 129.3 kg
[~2019-09-01 08:30] MED LIST changes: -ALBUTEROL SULF 2.5 MG/0.5ML(0.5%) NEB SOLN ONE; +APIX5TAB PO; +ASPI-404 PO; +FLUT1INH6 IN; +FURO80TA3 PO; +METO25TA5 PO; +POTA8TAB2 PO; +SERDISK IN; +SPIR25TA8 PO
[2019-09-01] MEDS ORDERED: SODIUM CHLORIDE LOCK 10 ML ONE (09:36)
[2019-09-01] MEDS ORDERED: diphenhdrAMINE HCL 50 MG/1 ML VL ONE (09:37)
[2019-09-01] MEDS: MIDAZOLAM HCL 5 MG/ML-1ML VIAL ONE ×2 (10:09→10:13)
[2019-09-01] MEDS: fentaNYL CITRATE 100 MCG/2 ML VL ONE ×2 (10:09→10:13)
[2019-09-01 11:26] VITALS: BP 135/85
== END 2019-09-01 11:35 | disposition home or self-care (01) ==
LOC: SUR 08:30
PROVIDERS: ATTEND Internal Medicine Gastroenterology
DX: Z12.11 Encounter for screening for malignant neoplasm of colon (principal); D12.2 Benign neoplasm of ascending colon; K57.30 Diverticulosis of large intestine without perforation or abscess without bleeding; K64.4 Residual hemorrhoidal skin tags; K64.8 Other hemorrhoids; J44.9 Chronic obstructive pulmonary disease, unspecified; I11.0 Hypertensive heart disease with heart failure; I50.9 Heart failure, unspecified; E66.9 Obesity, unspecified; F41.9 Anxiety disorder, unspecified; Z79.82 Long term (current) use of aspirin; Z79.899 Other long term (current) drug therapy; Z98.890 Other specified postprocedural states; Z90.49 Acquired absence of other specified parts of digestive tract; Z98.84 Bariatric surgery status; Z79.01 Long term (current) use of anticoagulants; Z87.891 Personal history of nicotine dependence; Z68.38 Body mass index [BMI] 38.0-38.9, adult
CPT/HCPCS: 36415; 45385; 85025; 85610; 85730; 88305; J1200; J2250; J3010; J7030; 99152; 99153

== ENCOUNTER 2022-05-26 06:11 | Inpatient (IN) | payer OTHER, MEDICAID ==
[2022-05-26] VITALS (7 sets, daily range): BP systolic 101–151; BP diastolic 66–90
[~2022-05-26] VITALS: Ht 182.9 cm; Wt 141.1 kg
[~2022-05-26 06:11] MED LIST changes: +AMLO-489 PO; -ASPI-404 PO; -FLUT1INH6 IN; -SPIR25TA8 PO; +TIOT1AER2 IN
[2022-05-26] MEDS ORDERED: ceFAZolin 1GM/50ML 100 ML IV ONE (06:21)
[2022-05-26] MEDS ORDERED: TRANEXAMIC ACID 20 ML ONE (07:12)
[2022-05-26] MEDS ORDERED: EPINEPHrine HCL 1 MG/1 ML AMP ONE (07:12)
[2022-05-26] MEDS ORDERED: VANCOMYCIN HCL 1000 MG VL ONE (07:13)
[2022-05-26] MEDS ORDERED: SUCCINYLCHOLINE CHLORIDE 20 MG/ML 10ML VIAL IV ONE (07:38)
[2022-05-26] MEDS ORDERED: fentaNYL CITRATE 100 MCG/2 ML VL ONE (07:44)
[2022-05-26] MEDS ORDERED: MORPHINE SULF PF 5 MG/10 ML VIAL ONE (07:44)
[2022-05-26] MEDS ORDERED: MIDAZOLAM HCL 2MG/2ML 2ml VIAL (1mg/ml) ONE ×2 (07:45→09:18)
[2022-05-26] MEDS ORDERED: TETRACAINE 1% INJ 2 ML VIAL IJ ONE (07:47)
[2022-05-26] MEDS ORDERED: ceFAZolin 1GM/50ML 50 ML IV ONE (08:18)
[2022-05-26] MEDS ORDERED: PROPOFOL 10 MG/ML 20 ML IV ONE (10:52)
[2022-05-26] MEDS ORDERED: ONDANSETRON HCL 4 MG/2 ML VIAL ONE (10:53)
[2022-05-26] MEDS ORDERED: diphenhdrAMINE HCL 50 MG/1 ML VL ONE (10:53)
[2022-05-26] MEDS ORDERED: ONDANSETRON HCL 4 MG/2 ML VIAL IV PRN ×3 (11:15→11:30)
[2022-05-26] MEDS ORDERED: NALOXONE HCL 0.4 MG/ML VIAL IV PRN (11:30)
[2022-05-26] MEDS ORDERED: DexAMETHasone SOD PHOS 10MG/1ML VIAL INJ IV PRN (11:30)
[2022-05-26] MEDS ORDERED: oxyCODONE HCL 5MG TAB PO PRN (11:30)
[2022-05-26] MEDS ORDERED: diphenhdrAMINE HCL 50 MG/1 ML VL IV PRN (11:30)
[2022-05-26] MEDS: SODIUM CHLORIDE 0.9% 1,000 ML IV SCH ×2 (11:30→19:30)
[2022-05-26] MEDS ORDERED: NALBUPHINE HCL 10 MG/1ml INJECTION SUBCUT ONE (11:30)
[2022-05-26] MEDS ORDERED: METOCLOPRAMIDE HCL 5MG/ml INJ 2ml VIAL IV PRN (11:30)
[2022-05-26] MEDS ORDERED: HYDROmorphone HCL 2 MG/ML VL/or syr IV PRN ×4 (11:30)
[2022-05-26] MEDS ORDERED: fentaNYL CITRATE 100 MCG/2 ML VL IV PRN (11:30)
[2022-05-26] MEDS: ACETAMINOPHEN 325 MG TAB PO SCH ×2 (12:00→18:00)
[2022-05-26] MEDS: oxyCODONE HCL 5MG TAB PO PRN ×2 (13:35→22:16)
[2022-05-26] MEDS: ceFAZolin 3 GM in D5W 5% 100 ML IV SCH ×2 (14:00→22:16)
[2022-05-26] MEDS ORDERED: TIOT17SP INH (14:51)
[2022-05-26] MEDS: SALMETEROL 50 MCG IN SCH (22:00)
[2022-05-26] MEDS: POTASSIUM CHLORIDE 8 MEQ TAB PO SCH (22:16)
[2022-05-26] MEDS: PREGABALIN 25 MG CAP PO SCH (22:16)
[2022-05-27] VITALS (13 sets, daily range): BP systolic 126–168; BP diastolic 73–104
[2022-05-27] MEDS: ACETAMINOPHEN 325 MG TAB PO SCH ×4 (00:09→18:00)
[2022-05-27] MEDS: SODIUM CHLORIDE 0.9% 1,000 ML IV SCH (03:30)
[2022-05-27 06:37] LABS: Basophils # (auto) 0 10 ^3/uL (0-0.2); Basophils % (auto) 0.3 % (0.0-2.0); Eosinophils # (auto) 0 10 ^3/uL (0-0.8); Eosinophils % (auto) 0.5 % (0.0-7.0); Hematocrit 40.5 % (41.0-53.0); Hemoglobin 13.3 g/dL (13.5-17.5); Lymphocytes # (auto) 0.9 10 ^3/uL (0.4-5.4); Mean Corpuscular Hemoglobin 26.9 pg (28.0-32.0); Mean Corpuscular Hgb Conc. 32.8 g/dL (32.0-36.0); Mean Corpuscular Volume 81.9 fL (80.0-100.0); Monocytes # (auto) 0.9 10 ^3/uL (0-1.3); Monocytes % (auto) 9.7 % (0.0-12.0); Neutrophils # (auto) 7.9 10 ^3/uL (1.6-8.6); Neutrophils % (auto) 80.5 % (37.0-80.0); Red Blood Cells 4.95 10^6/uL (4.5-5.90); Red Cell Distribution Width 14.8 % (11.8-14.3); White Blood Cell 9.7 10^3/uL (4.4-10.8)
[2022-05-27] MEDS: oxyCODONE HCL 5MG TAB PO PRN ×2 (06:52→14:16)
[2022-05-27 06:54] LABS: Calcium 8.1 mg/dL (8.5-10.1); Potassium 3.8 mmol/L (3.5-5.1)
[2022-05-27 06:57] LABS: BUN/Creatinine Ratio 22.9
[2022-05-27] MEDS ORDERED: METOPROLOL TARTRATE 25 MG TAB PO SCH (10:00)
[2022-05-27] MEDS ORDERED: APIXABAN 2.5 MG TAB PO SCH (10:00)
[2022-05-27] MEDS: SALMETEROL 50 MCG IN SCH (10:00)
[2022-05-27] MEDS ORDERED: FUROSEMIDE 40 MG TAB PO SCH (10:00)
[2022-05-27] MEDS ORDERED: FUROSEMIDE PO SCH (10:00)
[2022-05-27] MEDS ORDERED: amLODIPine BESYLATE 5 MG TAB PO SCH (10:00)
[2022-05-27] MEDS: PREGABALIN 25 MG CAP PO SCH (10:44)
[2022-05-27] MEDS: POTASSIUM CHLORIDE 8 MEQ TAB PO SCH (10:46)
== END 2022-05-27 19:07 | disposition home health service (06) | DRG 470 ==
LOC: SUR 06:11 → TELE 11:34 → TELE-WESTW 12:20
PROVIDERS: ADMIT Orthopaedic Surgery; ATTEND Orthopaedic Surgery
PROC: 0SR90JZ Replacement of Right Hip Joint with Synthetic Substitute, Open Approach (ICD-10-PCS; principal; 2022-05-26 07:58)
DX: M16.11 Unilateral primary osteoarthritis, right hip (principal); Z20.822 Contact with and (suspected) exposure to COVID-19; I10 Essential (primary) hypertension; J44.9 Chronic obstructive pulmonary disease, unspecified; Z88.8 Allergy status to other drugs, medicaments and biological substances
CPT/HCPCS: 36415; 72170; 73501; 80048; 85025; 86850; 86900; 86901; 97110; 97116; 97163; 97530; A4565; G0378; J0171; J0330; J0690; J2250; J2405; J2704; J7060

== ENCOUNTER 2024-11-21 17:01 | Emergency (ER) | payer OTHER, MEDICAID ==
[~2024-11-21] VITALS: Ht 182.9 cm; Wt 142.2 kg
[~2024-11-21 17:01] MED LIST changes: -AMLO-489 PO; +AMLO1TAB22 PO; -POTA8TAB2 PO; +POTA8TAB38 PO; +TIOT17SP INH
--- NOTE | 2024-11-21 17:43 | ED.PDOC ---
History of Present Illness HPI Comments 64 y/o M, with Hx of AFIB, anemia, CHF, COPD, HTN, and morbid obesity, presents with c/o shortness of breath and bilateral leg swelling, today. Patient endorses on onset of symptoms 1x month ago and difficulty breathing worsening within this past week. Patient comments on being sent from an urgent care facility when attempting to be seen for symptoms, today, due to facility refusing on the basis on not taking his insurance and concerns for him having possible pneumonia. He comments on breathing worsening with exertion or laying flat and swelling improving after sleeping. Patient also reports no current Lasix medication use. He denies any chest pain, cough, dyspnea, fever, chills, or other associated symptoms or modifiers at this time. Chief Complaint: Shortness of Breath Time Seen by MD: 17:27 Primary Care Provider: GELY Reviewed Notes: Nurses Notes, Medications, Allergies Allergies: Coded Allergies: Ibuprofen (Unverified Adverse Reaction, Severe, Hx of bleeding ulcer, 05/22/22) Home Meds Active Scripts Furosemide (Furosemide) 20 Mg Tab, 1 TAB PO BID, #60 TAB 1 Refill Prov:KERRY SOTO 11/21/24 Reported Medications Tiotropium Canyon Monohydrate (Spiriva Respimat) 2.5 Mcg/Act Spr, 2 PUFF INH DAILY 05/26/22 Tiotropium [place] Monohydrate (Spiriva Respimat) 1.25 Mcg/Act Aer, 1.25 MCG IN, AER 05/22/22 Amlodipine Besylate (Amlodipine Besylate) 5 Mg Tab, 5 MG PO DAILY, TAB 05/22/22 Salmeterol Xinafoate (Serevent Diskus) 50 Mcg Aer, 50 MCG IN BID, AER 08/28/19 Potassium Chloride (Klor-Con 8) 8 Meq Tab, 8 MEQ PO BID, TAB 08/28/19 Metoprolol Tartrate (Metoprolol Tartrate) 25 Mg Tab, 25 MG PO DAILY for 30 Days, MG 08/28/19 Furosemide (Furosemide) 80 Mg Tab, 1 TAB PO DAILY, #30 TAB 5 Refills 08/28/19 Apixaban Base (ELIQUIS) 5 Mg Tab, 5 MG PO BID, TAB 08/28/19 Information Source: Patient Mode of Arrival: Ambulatory Severity: Moderate Timing: Months Duration: Since onset Prehospital treatment: None Past Medical History PAST MEDICAL HISTORY: AFIB, Anemia, CHF, COPD, HTN Past Medical History (Other): morbid obesity Surgical History: Denies all surgeries Family History Family History: Unobtainable Social History Smoker: Non-Smoker Alcohol: Denies ETOH Use Drugs: Denies Drug Use Lives In: Home Respiratory: reports: shortness of breath Musculoskeletal: reports: others (bilateral leg swelling ) All Other Systems: Reviewed and Negative (negative unless otherwise stated above or in HPI) Physical Exam General Appearance: No Apparent Distress, Obese HEENT: Normal ENT Inspection, Pharynx Normal, TMs Normal Neck: Full Range of Motion, Non-Tender, Normal, Normal Inspection Respiratory: Chest Non-Tender, Decreased Breath Sounds (bilateral lower lobes), Lungs Clear, No Accessory Muscle Use, No Respiratory Distress Cardiovascular: No Edema, No JVD, No Murmur, No Gallop, Normal Peripheral Pulses, Regular Rate/Rhythm Breast Exam: Deferred Gastrointestinal: No Organomegaly, Non Tender, No Pulsatile Mass, Normal Bowel Sounds, Soft Genitalia: Deferred Pelvic: Deferred Rectal: Deferred Extremities: Leg edema (bilateral pedal edema ), No calf tenderness, Normal capillary refill, Normal range of motion, Non-tender Musculoskeletal : Apperance: Normal 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 Was a procedure done?: No Differential Dx Considerations may include: CHF exacerbation, fluid retention, medication noncompliant X-Ray, Labs, Meds, VS Vital Signs Date Time Temp Pulse Resp B/P (MAP) Pulse Ox O2 Delivery O2 Flow Rate FiO2 11/21/24 17:12 71 11/21/24 17:04 98.3 52 20 161/82 (108) 97 Lab Test 11/21/24 18:36 Range/Units White Blood Count 6.8 4.4-10.8 10^3/uL Red Blood Count 4.35 L 4.5-5.90 10^6/uL Hemoglobin 9.9 L 13.5-17.5 g/dL Hematocrit 31.2 L 41.0-53.0 % Mean Corpuscular Volume 71.7 L 80.0-100.0 fL Mean Corpuscular Hemoglobin 22.9 L 28.0-32.0 pg Mean Corpuscular Hemoglobin Concent 31.9 L 32.0-36.0 g/dL Red Cell Distribution Width 21.0 H 11.8-14.3 % Platelet Count 333 140-450 10^3/uL Mean Platelet Volume 7.8 6.9-10.8 fL Neutrophils (%) (Auto) 66.6 37.0-80.0 % Lymphocytes (%) (Auto) 22.8 10.0-50.0 % Monocytes (%) (Auto) 8.0 0.0-12.0 % Eosinophils (%) (Auto) 1.6 0.0-7.0 % Basophils (%) (Auto) 1.0 0.0-2.0 % Neutrophils # (Auto) 4.5 1.6-8.6 10 ^3/uL Lymphocytes # (Auto) 1.5 0.4-5.4 10 ^3/uL Monocytes # (Auto) 0.5 0-1.3 10 ^3/uL Eosinophils # (Auto) 0.1 0-0.8 10 ^3/uL Basophils # (Auto) 0.1 0-0.2 10 ^3/uL Nucleated Red Blood Cells 0.2 % Sodium Level 142 136-145 mmol/L Potassium Level 4.2 3.5-5.1 mmol/L Chloride Level 106 98-107 mmol/L Carbon Dioxide Level 31 20-31 mmol/L Anion Gap 5 5-15 Blood Urea Nitrogen 9 9-23 mg/dL Creatinine 0.68 L 0.700-1.30 mg/dL Glomerular Filtration Rate Calc 103 >90 mL/min BUN/Creatinine Ratio 13.2 10.0-20.0 Serum Glucose 88 74-106 mg/dL Calcium Level 9.9 8.7-10.4 mg/dL Total Bilirubin 0.6 0.2-1.0 mg/dL Aspartate Amino Transferase (AST) 24 13-40 U/L Alanine Aminotransferase (ALT) 37 7-40 U/L Alkaline Phosphatase 82 46-116 U/L B-Type Natriuretic Peptide 142.15 0-100 pg/mL Total Protein 6.6 5.7-8.2 g/dL Albumin 4.0 3.2-4.8 g/dL X-Ray, Labs, Meds, VS Comment Imaging: X-rays and CT scans were reviewed and interpreted by this provider, showing pulmonary edema. Pending radiology review. Laboratory: Labs reviewed and interpreted by this provider. No significant abnormalities noted. Patient has prior medical visits reviewed. Med reconciliation performed Vital signs reviewed Time of 1ST Reevaluation: 17:57 Reevaluation 1ST: Unchanged Patient Education/Counseling: Diagnosis, Treatment, Need For Follow Up (Patient advised to follow-up in the emergency room in the next 24 to 48 hours if symptoms do not improve. Advised follow-up with PCP in the next 3 to 5 days. Patient verbalized understanding. ) Family Education/Counseling: No Family Present Additional Information ordered the following tests: EKG Departure 1 Departure Time of Disposition: 20:48 Impression: Primary Impression: CHF (congestive heart failure) Qualified Codes: I50.21 - Acute systolic (congestive) heart failure Additional Impression: Morbid obesity Disposition: HOME / SELF CARE / HOMELESS Condition: Fair e-Prescriptions Furosemide (Furosemide) 20 Mg Tab 1 TAB PO BID, #60 TAB 1 Refill Prov: KERRY SOTO 11/21/24 Discharged With: Self Critical Care Note Critical Care Time?: No Stability Stability form required: No Heart Score Heart Score: Heart Score Response (Comments) Value History N/A 0 EKG N/A 0 Age N/A 0 Risk Factors N/A 0 Troponin N/A 0 Total 0 I personally scribed for KERRY SOTO ([email or web address]) on 11/21/24 at 17:43. Electronically submitted by Wilver Borges ([email or web address]). KERRY SOTO Nov 21, 2024 17:43
--- NOTE | 2024-11-21 18:35 | DVH ---
CHEST RADIOGRAPH Indication: sob Technique: Single frontal view of the chest was obtained COMPARISON: None FINDINGS: Lines and Tubes: None Lungs: Probable mild interstitial pulmonary edema Pleura: No effusion. No pneumothorax. Cardiomediastinal contours: Mild cardiomegaly Bones: Unremarkable IMPRESSION: 1. Probable mild interstitial pulmonary edema
[2024-11-21 19:10] LABS: Basophils # (auto) 0.1 10 ^3/uL (0-0.2); Eosinophils # (auto) 0.1 10 ^3/uL (0-0.8); Hematocrit 31.2 % (41.0-53.0); Monocytes # (auto) 0.5 10 ^3/uL (0-1.3); Neutrophils # (auto) 4.5 10 ^3/uL (1.6-8.6); White Blood Cell 6.8 10^3/uL (4.4-10.8)
[2024-11-21 19:12] LABS: Eosinophils % (auto) 1.6 % (0.0-7.0); Hemoglobin 9.9 g/dL (13.5-17.5); Lymphocytes # (auto) 1.5 10 ^3/uL (0.4-5.4); Lymphocytes % (auto) 22.8 % (10.0-50.0); Mean Corpuscular Hemoglobin 22.9 pg (28.0-32.0); Mean Corpuscular Hgb Conc. 31.9 g/dL (32.0-36.0); Mean Corpuscular Volume 71.7 fL (80.0-100.0); Neutrophils % (auto) 66.6 % (37.0-80.0); Nucleated Red Blood Cells % 0.2 %; Platelet Count (auto) 333 10^3/uL (140-450); Red Blood Cells 4.35 10^6/uL (4.5-5.90)
[2024-11-21 19:29] LABS: Alanine Aminotransferase 37 U/L (7-40); Alkaline Phosphatase 82 U/L (46-116); Anion Gap 5 (5-15); Aspartate Aminotransferase 24 U/L (13-40); BUN/Creatinine Ratio 13.2 (10.0-20.0); Bilirubin, Total 0.6 mg/dL (0.2-1.0); Calcium 9.9 mg/dL (8.7-10.4); Carbon Dioxide 31 mmol/L (20-31); Chloride 106 mmol/L (98-107); Glucose 88 mg/dL (74-106); Potassium 4.2 mmol/L (3.5-5.1); Sodium 142 mmol/L (136-145); Total Protein 6.6 g/dL (5.7-8.2)
[2024-11-21 19:30] LABS: Blood Urea Nitrogen 9 mg/dL (9-23)
[2024-11-21] MEDS ORDERED: FURO20TA3 PO (20:50)
[2024-11-21 23:15] VITALS: BP 158/86; PULSE 64; RESP 13; TEMP 98.1; O2SAT 95
[2024-11-21] MEDS: FUROSEMIDE 20 MG TAB PO ONE (23:22)
--- NOTE | 2024-11-29 09:20 | ECG ---
[facility] Test Date: 2024-11-21 Test Time: 17:12:09 Pat Name: MONSERRAT CARRILLO Department: ER Room: Gender: M Float Tender: DR MATHEW: 1960 Requested By: KERRY SOTO Order Number: [id number] Reading MD: Dmitry Benedict Measurements Intervals Searchlight Rate: 71 P: 20 CO: 181 QRS: -13 QRSD: 91 T: 29 QT: 409 QTc: 445 Interpretive Statements Sinus rhythm Electronically Signed On 11-30-2024 9:37:22 PST by Dmitry Benedict Please click the below link to view image of tracing.
== END 2024-11-21 23:26 | disposition home or self-care (01) ==
LOC: ER 17:01
DX: I50.9 Heart failure, unspecified (principal); I11.0 Hypertensive heart disease with heart failure; E66.01 Morbid (severe) obesity due to excess calories; I48.91 Unspecified atrial fibrillation; J44.9 Chronic obstructive pulmonary disease, unspecified; Z79.01 Long term (current) use of anticoagulants; Z79.51 Long term (current) use of inhaled steroids; Z79.899 Other long term (current) drug therapy; Z88.6 Allergy status to analgesic agent
CPT/HCPCS: 36415; 71045; 80053; 83880; 85025; 93005

== ENCOUNTER 2025-01-01 06:10 | Inpatient (IN) | payer OTHER, MEDICAID ==
[2025-01-01] VITALS (41 sets, daily range): BP systolic 73–129; BP diastolic 41–75; PULSE 75–104; RESP 11–25; TEMP 97.6–99.2; O2SAT 88–100
[~2025-01-01] VITALS: Ht 182.9 cm; Wt 152.9 kg
[~2025-01-01 06:10] MED LIST changes: +ALBUAER3 IN; -APIX5TAB PO; +FERR200T3 PO; +FURO20TA3 PO; -FURO80TA3 PO; +LISI20TA56 PO; -METO25TA5 PO; +PANT40TA2 PO; -SERDISK IN; -TIOT17SP INH; -TIOT1AER2 IN
[2025-01-01] MEDS: TRANEXAMIC ACID 20 ML ONE (06:51)
[2025-01-01] MEDS: VANCOMYCIN HCL 1000 MG VL ONE (06:51)
[2025-01-01] MEDS ORDERED: KETOROLAC TROMETH 30 MG/ML 1ML VIAL ONE (06:55)
[2025-01-01] MEDS ORDERED: MORPHINE SULF PF 5 MG/10 ML VIAL ONE ×2 (06:55→07:22)
[2025-01-01] MEDS: ceFAZolin 2 GM/D5W100ml 100 ML IV ONE (06:59)
[2025-01-01] MEDS: BUPIVACAINE 0.25% INJ 50ML VIAL ONE (07:06)
[2025-01-01] MEDS ORDERED: fentaNYL CITRATE 100 MCG/2 ML VL ONE (07:21)
[2025-01-01] MEDS ORDERED: KETAMINE 50mg/ML 1ml syringe ONE ×3 (07:21→09:13)
[2025-01-01] MEDS ORDERED: MIDAZOLAM HCL 2MG/2ML 2ml VIAL (1mg/ml) ONE (07:22)
[2025-01-01] MEDS ORDERED: PROPOFOL 10 MG/ML 20 ML IV ONE (07:22)
[2025-01-01] MEDS ORDERED: GLYCOPYRROLATE 0.2 MG/ML 1ML VIAL ONE (07:22)
[2025-01-01] MEDS ORDERED: ePHEDrine SULFATE 50 MG/ML AMP ONE (07:22)
[2025-01-01] MEDS: ROPIVACAINE 0.5% (5MG/ML) 20ML AMPULE IJ ONE (07:34)
[2025-01-01] MEDS: CEFEPIME 1GM/ 50ML 50 ML IV ONE (08:00)
[2025-01-01] MEDS: NOREPINEPHRINE 8 MG/250ML KIT 0 ML IV ONE (09:57)
[2025-01-01] MEDS: NOREPINEPHRINE 8 MG/250ML KIT 250 ML IV ONE (10:27)
[2025-01-01] MEDS ORDERED: ONDANSETRON HCL 4 MG/2 ML VIAL IV PRN (10:30)
--- NOTE | 2025-01-01 10:30 | DVHOP2 ---
Operative Report - 2 Report Details Date: 01/01/25 Preop Diagnosis: Left hip degenerative arthritis Postop Diagnosis: Same Surgeon: Tanisha Rodriguez MD Exploration Manager: Minor HOWELL Anesthesiologist: Abner Anesthesia: Regional Drains: Francisco closed wound suction Implant: IsiahJoy origin size 15 stem, standard offset, minus four neck length, 36 delta head, flat polyethylene, 56 acetabular shell, one acetabular screw Consent: The patient was informed of the risks and benefits of the procedure. These include but are not limited to complications of anesthesia, postoperative infection, incomplete relief of symptoms, recurrence of symptoms, damage to blood vessels, nerves and tendons, deep venous thrombosis, pulmonary embolism and possible need for repeat surgery in the future. Complications: Hypotension Estimated Blood Loss: 700 cc Fluids: 1 unit packed red blood cells transfused, see anesthesia record for remainder Findings: Denuded cartilage with eburnated bone, osteophytes Indications for Surgery: Left hip degenerative arthritis with severe pain and functional impairment despite nonoperative management Name of Procedure Performed Left total hip arthroplasty Procedure Details Procedure Details: The patient was brought to the operating room and given spinal anesthetic with adequate analgesia obtained. The patient was positioned lateral decubitus with the operative side up, stabilized with hip positioners. Axillary roll applied and lower extremities well-padded. Preop patient received IV Ancef, cefepime and IV tranexamic acid. Surgical timeout was performed verifying patient, laterality and procedure. The hip and lower extremity were prepped and draped in sterile fashion. Incision was made over the greater trochanter. Subcu taneous dissection and hemostasis were performed with Bovie and aqua mantis. I identified the fascia which was incised with Bovie and Charnley retractor inserted. I identified the gluteus medius that was split at the junction of its anterior and middle thirds with Bovie then incised off the anterior greater trochanter. I incised the anterior gluteus minimus which was elevated off the capsule. I elevated the reflected head of the rectus. I then performed anterior capsulectomy with Bovie. I extended capsular incision posterior medially and superior laterally. The head was dislocated. Femoral neck cut was made with saw and head removed. Head diameter was calipered on the back table. I adjusted retractors to expose the acetabulum. I circumferentially removed labral tissue with Bovie. I removed foveal tissue with Bovie, curette and rongeur. I then began reaming sequentially paying attention to inclination and version as I went. I trialed which was stable so acetabular implant was brought into the field and tapped into the acetabulum with fair fixation achieved so I decided to place a screw for additional fixation. I had positioned the holes in the superior posterior quadrant and drilled, measured depth gauge and applied 25 mm acetabular screw. I then brought up the flat liner which was spun to make sure there was no soft tissue entrapment then tapped in and stability verified. I then brought my attention to the proximal femur. The leg was placed in the sterile bag anteriorly. I cleaned up soft tissue at the greater trochanter shoulder with Bovie. I then used a rongeur to clip the lateral neck. I then used a box osteotome, canal finder and lateralizing rasp. I sequentially broached to size 15. I revised the femoral neck cut with calcar planer. I trialed with a minus four neck length and [36] head which was stable. Intraoperative AP pelvis x-ray was obtained to verify length, offset and implant size. The hip was dislocated. Neck and head trial removed. Broach was removed. At this point there was a marked increase in deep bleeding. I used the Bovie, Surgiflo, and aqua Mantis to control bleeding though due to blood loss I did transfuse 1 unit of packed red blood cells. I tapped in the femoral implant with good fixation achieved. I cleaned and dried the Mei taper and tapped on the ceramic head. The hip was again reduced and tested for stability which was good. I irrigated with xperience. I placed a 2 grams of vancomycin in the deep and superficial wound. I repaired the minimus and medius to the anterior greater trochanter with #[5] FiberWire in running fashion . I oversewed the repair with 0 Vicryl. I repaired the fascia with #1 Ethibond interrupted [id number]. Deep subcutaneous tissue was closed with 0 Vicryl. Superficial subcutaneous tissue was closed with 2-0 Vicryl. The skin was closed with ernestina. I then applied the Francisco closed wound suction. Patient tolerated the procedure well and was brought to the recovery room in stable conditio Specimen: n. Condition Stable Disposition Still a Patient TANISHA RODRIGUEZ MD Jan 01, 2025 10:30
[2025-01-01] MEDS ORDERED: DexAMETHasone SOD PHOS 10MG/1ML VIAL INJ IV PRN (10:45)
[2025-01-01] MEDS ORDERED: NALOXONE HCL 0.4 MG/ML VIAL IV PRN (10:45)
--- NOTE | 2025-01-01 10:48 | DVH ---
CLINICAL INDICATION: INTRAOP TECHNIQUE: 2 radiographic views of the pelvis were obtained. Comparison: None FINDINGS/IMPRESSION: Status post bilateral hip arthroplasties.
[2025-01-01] MEDS: IPRATROPIUM BROM 0.5 MG/2.5ML INH SOL NEB ONE (11:00)
[2025-01-01] MEDS: ALBUTEROL SULF 2.5 MG/0.5ML(0.5%) NEB SOLN NEB ONE (11:00)
--- NOTE | 2025-01-01 11:00 | DVH ---
EXAM: XY PELVIS AP CLINICAL INDICATION: postop TECHNIQUE: XY PELVIS AP Comparison: PELVIS AP on DOS: 05/26/22 FINDINGS/IMPRESSION: There is no evidence of acute fracture or dislocation. Bilateral hip arthroplasties The alignment is anatomical. There is no radiopaque foreign body.
[2025-01-01] MEDS: VASOPRESSIN 20 UNIT/ML ONE (11:06)
[2025-01-01] MEDS: IPRATROPIUM BROM 0.5 MG/2.5ML INH SOL ONE (11:07)
[2025-01-01] MEDS: ALBUTEROL SULF 2.5 MG/0.5ML(0.5%) NEB SOLN ONE (11:08)
[2025-01-01] MEDS ORDERED: oxyCODONE HCL 5MG TAB PO PRN (11:30)
[2025-01-01] MEDS: SODIUM CHLORIDE 0.9% 1,000 ML IV SCH (11:30)
[2025-01-01 11:38] LABS: Basophils # (auto) 0 10 ^3/uL (0-0.2); Basophils % (auto) 0.1 % (0.0-2.0); Eosinophils # (auto) 0 10 ^3/uL (0-0.8); Eosinophils % (auto) 0.2 % (0.0-7.0); Hematocrit 33.7 % (41.0-53.0); Hemoglobin 10.1 g/dL (13.5-17.5); Lymphocytes # (auto) 0.6 10 ^3/uL (0.4-5.4); Lymphocytes % (auto) 2.5 % (10.0-50.0); Mean Corpuscular Hemoglobin 21.4 pg (28.0-32.0); Mean Corpuscular Hgb Conc. 29.9 g/dL (32.0-36.0); Mean Corpuscular Volume 71.5 fL (80.0-100.0); Monocytes # (auto) 0.2 10 ^3/uL (0-1.3); Neutrophils # (auto) 21.4 10 ^3/uL (1.6-8.6); Neutrophils % (auto) 96.2 % (37.0-80.0); Platelet Count (auto) 332 10^3/uL (140-450); Red Blood Cells 4.71 10^6/uL (4.5-5.90); Red Cell Distribution Width 24.8 % (11.8-14.3); White Blood Cell 22.3 10^3/uL (4.4-10.8)
[2025-01-01] MEDS: ACETAMINOPHEN 325 MG TAB PO SCH (12:00)
[2025-01-01 13:05] LABS: Anisocytosis Moderate; Hypochromia Moderate
[2025-01-01 13:06] LABS: Platelet Estimate Adequate
[2025-01-01] MEDS ORDERED: ceFAZolin 2 GM/D5W50ml 50 ML IV SCH ×2 (14:00)
[2025-01-01] MEDS: diphenhdrAMINE HCL 50 MG/1 ML VL IV PRN (14:40)
[2025-01-01] MEDS: NOREPINEPHRINE 8 MG/250ML KIT 250 ML IV SCH (15:23)
[2025-01-01 15:57] LABS: Eosinophils # (auto) 0 10 ^3/uL (0-0.8); Eosinophils % (auto) 0.1 % (0.0-7.0); Hemoglobin 10.1 g/dL (13.5-17.5); Mean Corpuscular Hgb Conc. 30.1 g/dL (32.0-36.0); Monocytes # (auto) 0.9 10 ^3/uL (0-1.3)
[2025-01-01 15:59] LABS: Basophils # (auto) 0.2 10 ^3/uL (0-0.2); Basophils % (auto) 0.9 % (0.0-2.0); Hematocrit 33.4 % (41.0-53.0); Lymphocytes # (auto) 0.4 10 ^3/uL (0.4-5.4); Lymphocytes % (auto) 1.4 % (10.0-50.0); Mean Corpuscular Hemoglobin 21.1 pg (28.0-32.0); Mean Corpuscular Volume 70.2 fL (80.0-100.0); Monocytes % (auto) 3.5 % (0.0-12.0); Neutrophils # (auto) 24.1 10 ^3/uL (1.6-8.6); Neutrophils % (auto) 94.1 % (37.0-80.0); Platelet Count (auto) 360 10^3/uL (140-450); Red Blood Cells 4.76 10^6/uL (4.5-5.90); White Blood Cell 25.6 10^3/uL (4.4-10.8)
[2025-01-01 16:01] LABS: Alanine Aminotransferase 11 U/L (7-40); Albumin 3.3 g/dL (3.2-4.8); Alkaline Phosphatase 49 U/L (46-116); Anion Gap 10 (5-15); Aspartate Aminotransferase 14 U/L (13-40); BUN/Creatinine Ratio 21.8 (10.0-20.0); Calcium 8.9 mg/dL (8.7-10.4); Carbon Dioxide 25 mmol/L (20-31); Chloride 105 mmol/L (98-107); Potassium 3.9 mmol/L (3.5-5.1); Sodium 140 mmol/L (136-145)
[2025-01-01 16:02] LABS: Red Cell Distribution Width 24.8 % (11.8-14.3)
[2025-01-01 16:04] LABS: Bilirubin, Total 0.3 mg/dL (0.2-1.0); Blood Urea Nitrogen 26 mg/dL (9-23); Glucose 202 mg/dL (74-106); Total Protein 5.5 g/dL (5.7-8.2)
[2025-01-01 16:25] LABS: Anisocytosis Moderate; Hypochromia Moderate
[2025-01-01 16:26] LABS: Ovalocytes FEW; Stomatocytes Few
[2025-01-01 16:28] LABS: Large Platelets FEW; Platelet Estimate Adequa
[2025-01-01] MEDS: ceFAZolin 2 GM/D5W50ml 50 ML IV SCH (17:05)
[2025-01-01] MEDS ORDERED: LISI-275 PO (17:28)
[2025-01-01] MEDS ORDERED: TAMS-35 PO (17:28)
--- NOTE | 2025-01-01 19:05 | DVHINCON2 ---
Date Seen: Jan 01, [address] Eli Reason for Consultation Hypotension History of Present Illness Patient was status post arthroplasty. Subsequent to his surgery the patient had hypotension was transferred to the intensive care unit. He denies any chest pain or shortness of breath. He has been told by his quality control supervisor that he has an extra click in his heart. He was told that there was nothing to worry about. He was cleared for surgery two weeks ago. He does have a history of previous and recent testing with echocardiography and nuclear imaging that was presumably normal prior to surgery. Patient has an associated history of multiple cardiac problems but has been stable over the last several years. Past Medical History His past medical history significant for hypertension COPD. Degenerative arthritis. He had history of atrial fibrillation anemia congestive heart failure. Hypertension obesity. Past Surgical History Noncontributory. Family History: Family history: Cardiovascular disease G8 MOTHER Family history: Hypertension G8 MOTHER G8 FATHER G8 BROTHER G8 SISTER Stroke G8 FATHER G8 SISTER Family History Noncontributory. Social History Nondrinker nonsmoker no drug abuse. . Allergies: Coded Allergies: Ibuprofen (Unverified Adverse Reaction, Severe, Hx of bleeding ulcer, 05/22/22) Home Meds Active Scripts Furosemide (Furosemide) 20 Mg Tab, 1 TAB PO BID, #60 TAB 1 Refill Prov:KERRY SOTO 11/21/24 Reported Medications Lisinopril (Lisinopril) 5 Mg Tab, 5 MG PO DAILY for 30 Days, MG 01/01/25 Tamsulosin Hcl (Flomax) 0.4 Mg Cap, 1 CAP PO HS, #30 CAP 11 Refills 01/01/25 Albuterol Sulfate (VENTOLIN MDI) 90 Mcg Ih, 90 MCG IN DAILY, INH 12/29/24 Pantoprazole Sodium Sesquihydr (Protonix) 40 Mg Tab, 40 MG PO DAILY, #30 TAB 12/29/24 Ferrous Sulfate Dried (Feosol) 200 Mg Tab, 200 MG PO DAILY, TAB 12/29/24 Lisinopril (Lisinopril) 20 Mg Tab, 20 MG PO, TAB 12/29/24 Amlodipine Besylate (Amlodipine Besylate) 5 Mg Tab, 5 MG PO DAILY, TAB 05/22/22 Potassium Chloride (Klor-Con 8) 8 Meq Tab, 8 MEQ PO BID, TAB 08/28/19 Discontinued Reported Medications Metoprolol Tartrate (Metoprolol Tartrate) 25 Mg Tab, 25 MG PO DAILY for 30 Days, MG 08/28/19 Current Medications Current Medications Medications (Trade) Dose Ordered Sig/Inocencia Route PRN Reason Start Time Stop Time Status Last Admin Pregabalin (Lyrica Capsule) 50 mg BID PO 01/01/25 22:00 Apixaban (Eliquis) 2.5 mg BID PO 01/02/25 10:00 02/06/25 09:59 Cefazolin Sodium/ Dextrose 50 ml @ 50 mls/hr Q8HR IV 01/01/25 14:00 01/01/25 13:52 DC Sodium Chloride 1,000 ml @ 125 mls/hr Q8H IV 01/01/25 11:30 01/01/25 11:30 Acetaminophen (Tylenol Tablet) 650 mg Q6HP PO 01/01/25 12:00 01/01/25 17:56 Ondansetron HCl (Zofran) 4 mg Q4HP PRN IV NAUSEA / VOMITING 01/01/25 10:30 Oxycodone HCl 5 mg Q4HP PRN PO MODERATE PAIN (4-6 PAIN SCALE) 01/01/25 11:30 Oxycodone HCl 10 mg Q4HP PRN PO SEVERE PAIN (7-10 PAIN SCALE) 01/01/25 11:30 Diphenhydramine HCl (Benadryl Injection) 25 mg Q4HP PRN IV FOR ITCHING 01/01/25 10:45 01/01/25 14:40 Naloxone HCl (Narcan) 0.2 mg Q5M PRN IV For respirations < than 10/min 01/01/25 10:45 01/01/25 11:35 DC Dexamethasone Sodium Phosphate (Decadron Injection) 10 mg COIL TAPER PRN IV FOR ITCHING 01/01/25 10:45 01/01/25 11:35 DC Amlodipine Besylate (Norvasc Tablet) 5 mg DAILY PO 01/02/25 10:00 Lisinopril (Zestril Tablet) 20 mg DAILY PO 01/02/25 10:00 Pantoprazole Sodium (Protonix Tablet) 40 mg DAILY PO 01/02/25 10:00 Potassium Chloride (Klor-Con Tablet) 8 meq BID PO 01/01/25 22:00 Patient Own Medication 200 mg DAILY PO 01/02/25 10:00 Norepinephrine Bitartrate 250 ml @ 3.75 mls/hr Q24H IV 01/01/25 12:45 01/01/25 15:23 Cefazolin Sodium/ Dextrose 50 ml @ 50 mls/hr Q8H IV 01/01/25 14:00 01/01/25 14:57 DC Cefazolin Sodium/ Dextrose 50 ml @ 50 mls/hr Q8H IV 01/01/25 16:00 01/02/25 00:59 01/01/25 17:05 Review of Systems No fevers chills or weight loss reconstitution standpoint. Chronic respiratory as noted above. GI negative. Musculoskeletal as noted above with a history recent surgery degenerative arthritis. Hematologic oncologic and neuro logic otherwise negative. Vital Signs Vital Signs Date Time Temp Pulse Resp B/P (MAP) Pulse Ox O2 Delivery O2 Flow Rate FiO2 01/01/25 18:30 95 14 108/75 (86) 100 01/01/25 17:31 Nasal Cannula* 4 36 01/01/25 17:00 97.6 97.6 Physical Exam Currently off pressors at this time. HEENT examination was unremarkable early well-hydrated. No jugular distention no bruits. Lungs reveal good air entry no rales or rhonchi. Heart exam reveals regular S1-S2 soft S4. Abdominal examination is globular. Extremities show adequate perfusion. No clubbing or cyanosis no significant edema. Status post arthroplasty. Neurologically intact. Left shoulder arthritis. He states he can not move it at this time. Labs/Diagnostic Data EKG shows sinus tachycardia nonspecific ST changes. Labs Test 01/01/25 15:44 01/01/25 10:40 Range/Units White Blood Count 25.6 H 4.4-10.8 10^3/uL Red Blood Count 4.76 4.5-5.90 10^6/uL Hemoglobin 10.1 L 13.5-17.5 g/dL Hematocrit 33.4 L 41.0-53.0 % Mean Corpuscular Volume 70.2 L 80.0-100.0 fL Mean Corpuscular Hemoglobin 21.1 L 28.0-32.0 pg Mean Corpuscular Hemoglobin Concent 30.1 L 32.0-36.0 g/dL Red Cell Distribution Width 24.8 H 11.8-14.3 % Platelet Count 360 140-450 10^3/uL Mean Platelet Volume 8.5 6.9-10.8 fL Neutrophils (%) (Auto) 94.1 H 37.0-80.0 % Lymphocytes (%) (Auto) 1.4 L 10.0-50.0 % Monocytes (%) (Auto) 3.5 0.0-12.0 % Eosinophils (%) (Auto) 0.1 0.0-7.0 % Basophils (%) (Auto) 0.9 0.0-2.0 % Neutrophils # (Auto) 24.1 H 1.6-8.6 10 ^3/uL Lymphocytes # (Auto) 0.4 0.4-5.4 10 ^3/uL Monocytes # (Auto) 0.9 0-1.3 10 ^3/uL Eosinophils # (Auto) 0 0-0.8 10 ^3/uL Basophils # (Auto) 0.2 0-0.2 10 ^3/uL Nucleated Red Blood Cells 0.0 % Platelet Estimate [place]qua Large Platelets Few Hypochromasia (manual) Moderate Anisocytosis (manual) Moderate Microcytosis Moderate Ovalocytes Few Stomatocytes Few Anais Cells Few Sodium Level 140 136-145 mmol/L Potassium Level 3.9 3.5-5.1 mmol/L Chloride Level 105 98-107 mmol/L Carbon Dioxide Level 25 20-31 mmol/L Anion Gap 10 5-15 Blood Urea Nitrogen 26 H 9-23 mg/dL Creatinine 1.19 0.700-1.30 mg/dL Glomerular Filtration Rate Calc 68 >90 mL/min BUN/Creatinine Ratio 21.8 H 10.0-20.0 Serum Glucose 202 H 74-106 mg/dL Calcium Level 8.9 8.7-10.4 mg/dL Magnesium Level 2.0 1.6-2.6 mg/dL Total Bilirubin 0.3 0.2-1.0 mg/dL Aspartate Amino Transferase (AST) 14 13-40 U/L Alanine Aminotransferase (ALT) 11 7-40 U/L Alkaline Phosphatase 49 46-116 U/L Total Protein 5.5 L 5.7-8.2 g/dL Albumin 3.3 3.2-4.8 g/dL Echocardiogram is pending. Troponin levels thus far negative. No indication of myocardial injury Assessment Hypotension status post arthroplasty. Rule out fluid 3rd spacing. Rule out associated exacerbation of congestive heart failure given his previous history. Possible hypotension secondary to anesthesia and post sedation medications. Patient currently stable without pressors being instituted at this time. Plan/Recommendation We will continue careful observation. Repeat echocardiogram and labs. Patient seems stable at this time. No further cardiac workup needed at than an echocardiogram in monitor heart rhythm and blood pressure. Plan discussed with: Patient, Spouse NYHA Physical activity limitations: Class4(Severe)discomfort Date of Service: Jan 01, 2025 Billing Provider: JAVIER SWANN Sr., MD Cardiology Common Codes: 62835-ZZALORE INP/OBS CARE (High) JAVIER SWANN Sr., MD Jan 01, 2025 19:05
[2025-01-01] MEDS: POTASSIUM CHLORIDE 8 MEQ TAB PO SCH (22:01)
[2025-01-01] MEDS: PREGABALIN 25 MG CAP PO SCH (22:01)
[2025-01-02] VITALS (80 sets, daily range): BP systolic 87–141; BP diastolic 51–75; PULSE 69–94; RESP 10–26; TEMP 97.1–99.1; O2SAT 92–100
[2025-01-02 04:25] LABS: Basophils # (auto) 0 10 ^3/uL (0-0.2); Eosinophils # (auto) 0 10 ^3/uL (0-0.8); Lymphocytes # (auto) 1.1 10 ^3/uL (0.4-5.4); Neutrophils # (auto) 11.8 10 ^3/uL (1.6-8.6)
[2025-01-02 04:28] LABS: Basophils % (auto) 0.2 % (0.0-2.0); Hematocrit 25.6 % (41.0-53.0); Hemoglobin 8.1 g/dL (13.5-17.5); Lymphocytes % (auto) 7.7 % (10.0-50.0); Mean Corpuscular Hgb Conc. 31.5 g/dL (32.0-36.0); Mean Corpuscular Volume 69.9 fL (80.0-100.0); Monocytes # (auto) 1.1 10 ^3/uL (0-1.3); Monocytes % (auto) 8.1 % (0.0-12.0); Platelet Count (auto) 276 10^3/uL (140-450); Red Blood Cells 3.67 10^6/uL (4.5-5.90)
[2025-01-02 04:29] LABS: Chloride 106 mmol/L (98-107); Potassium 4.4 mmol/L (3.5-5.1); Sodium 138 mmol/L (136-145)
[2025-01-02 04:30] LABS: Anion Gap 6 (5-15); Calcium 8.8 mg/dL (8.7-10.4); Carbon Dioxide 26 mmol/L (20-31)
[2025-01-02 04:35] LABS: BUN/Creatinine Ratio 27.6 (10.0-20.0)
[2025-01-02 04:46] LABS: Blood Urea Nitrogen 27 mg/dL (9-23); Glucose 122 mg/dL (74-106)
[2025-01-02 05:40] LABS: Anisocytosis Slight; Hypochromia Moderate
[2025-01-02 05:41] LABS: Large Platelets FEW; Ovalocytes FEW; Platelet Estimate Adequate
[2025-01-02] MEDS: FERROUS SULFATE 200 MG PO SCH (09:42)
[2025-01-02] MEDS: LISINOPRIL 20 MG TAB PO SCH (09:43)
[2025-01-02] MEDS: amLODIPine BESYLATE 5 MG TAB PO SCH (09:43)
[2025-01-02] MEDS: APIXABAN 2.5 MG TAB PO SCH (09:44)
[2025-01-02] MEDS: PANTOPRAZOLE 40 MG TAB PO SCH (09:45)
[2025-01-02] MEDS ORDERED: ROCURONIUM 10MG/ML 10ML VIAL IV ONE (13:00)
--- NOTE | 2025-01-02 14:07 | DVHPN2 ---
Progress Note - Dictate Date Seen: Jan 02, 2025 Medical Necessity Reason Pt with a Central, PICC or Fol: No Subjective Patient in ICU but is stable. No complaints. No physical therapy or immobilization yet. vital signs Vital Sign Date Time Temp Pulse Resp B/P (MAP) Pulse Ox O2 Delivery O2 Flow Rate FiO2 01/02/25 13:09 98.6 01/02/25 13:00 94 15 115/63 01/02/25 12:30 97 01/02/25 12:00 Nasal Cannula* 4 36 Total Intake and Output 01/01/25 01/01/25 01/02/25 15:00 23:00 07:00 Intake Total 2521.25 ml 2010 ml Output Total 325 ml 750 ml Balance 2196.25 ml 1260 ml medications Current Medications Medications Dose Ordered Sig/Inocencia Route Start Time Stop Time Status Last Admin Dose Admin Pregabalin 50 mg BID PO 01/01/25 22:00 01/02/25 09:44 50 MG Apixaban 2.5 mg BID PO 01/02/25 10:00 02/06/25 09:59 Sodium Chloride 1,000 ml @ 125 mls/hr Q8H IV 01/01/25 11:30 01/02/25 08:06 125 MLS/HR Acetaminophen 650 mg Q6HP PO 01/01/25 12:00 01/02/25 12:29 650 MG Ondansetron HCl 4 mg Q4HP PRN IV 01/01/25 10:30 Oxycodone HCl 5 mg Q4HP PRN PO 01/01/25 11:30 Oxycodone HCl 10 mg Q4HP PRN PO 01/01/25 11:30 Diphenhydramine HCl 25 mg Q4HP PRN IV 01/01/25 10:45 01/01/25 14:40 25 MG Amlodipine Besylate 5 mg DAILY PO 01/02/25 10:00 Lisinopril 20 mg DAILY PO 01/02/25 10:00 Pantoprazole Sodium 40 mg DAILY PO 01/02/25 10:00 01/02/25 09:45 40 MG Potassium Chloride 8 meq BID PO 01/01/25 22:00 01/02/25 09:45 8 MEQ Patient Own Medication 200 mg DAILY PO 01/02/25 10:00 Norepinephrine Bitartrate 250 ml @ 3.75 mls/hr Q24H IV 01/01/25 12:45 01/01/25 15:23 18.75 MLS/HR objective Alert and oriented x4 Dressing dry and intact Distally neurovascularly intact No calf tenderness or edema laboratory and microbiology Laboratory Tests 01/02/25 04:00 Test 01/02/25 04:00 Range/Units Serum Glucose 122 H 74-106 mg/dL Assessment/Plan Postop day 1. s/p left total hip arthroplasty Intra op hypotension resolved Postop blood loss anemia-transfusion pending Plan: Physical therapy weight-bearing as tolerated when cleared by shipping assistant Monitor hemoglobin Medical management as per Cardiology. Plan discussed with: Patient TANISHA RODRIGUEZ MD Jan 02, 2025 14:07
[2025-01-02] MEDS: oxyCODONE HCL 5MG TAB PO PRN (17:47)
--- NOTE | 2025-01-02 17:48 | DVHHP2 ---
History of Present Illness Reason for Visit: Postop medical management History of Present Illness This is a 64-year-old gentleman with a hypertension osteoarthritis of the bilateral hips admitted by orthopedic surgeon underwent a successful hip surgery. Postop patient noted to be hypotensive therefore admitted to the ICU. Hospitalist consultation is obtained for postop management. Currently patient is clinically stable in the ICU. Denies any chest pain dizziness or lightheadedness. Past Medical History Hypertension, osteoarthritis of the hip Past Surgical History: Total hip replacement Family History: Hypertension Smoke: No ALCOHOL: rare Lives: with Family Review of Systems Review of Systems No chest pain or shortness for breath. No headache dizziness or lightheadedness. Other review of systems reviewed normal. Allergies: Coded Allergies: Ibuprofen (Unverified Adverse Reaction, Severe, Hx of bleeding ulcer, 05/22/22) Medications Current Medications Medications Dose Ordered Sig/Inocencia Route Start Time Stop Time Status Last Admin Dose Admin Pregabalin 50 mg BID PO 01/01/25 22:00 01/02/25 09:44 50 MG Apixaban 2.5 mg BID PO 01/02/25 10:00 02/06/25 09:59 Acetaminophen 650 mg Q6HP PO 01/01/25 12:00 01/02/25 12:29 650 MG Ondansetron HCl 4 mg Q4HP PRN IV 01/01/25 10:30 Oxycodone HCl 5 mg Q4HP PRN PO 01/01/25 11:30 Oxycodone HCl 10 mg Q4HP PRN PO 01/01/25 11:30 Diphenhydramine HCl 25 mg Q4HP PRN IV 01/01/25 10:45 01/01/25 14:40 25 MG Pantoprazole Sodium 40 mg DAILY PO 01/02/25 10:00 01/02/25 09:45 40 MG Patient Own Medication 200 mg DAILY PO 01/02/25 10:00 Lisinopril 20 mg DAILY PO 01/03/25 10:00 UNV Sennosides 8.6 mg HS PO 01/02/25 22:00 UNV Exam Vital Signs Vital Signs Date Time Temp Pulse Resp B/P (MAP) Pulse Ox O2 Delivery O2 Flow Rate FiO2 01/02/25 16:30 90 19 119/58 (78) 97 01/02/25 16:00 Nasal Cannula* 4 36 01/02/25 16:00 99.0 99.0 Exam Alert awake oriented to place and person comfortable in bed without distress. Obese gentleman. HEENT neck supple no JVD. heart regular rate and rhythm S1-S2 . lungs fair air movement without rales wheezes poor inspiratory effort. abdomen obese soft nontender positive bowel sounds. extremities no edema positive distal pedal pulses. Labs/Xrays Labs Test 01/02/25 04:00 01/01/25 15:44 01/01/25 10:40 Range/Units White Blood Count 14.0 #H 4.4-10.8 10^3/uL Red Blood Count 3.67 L 4.5-5.90 10^6/uL Hemoglobin 8.1 #L 13.5-17.5 g/dL Hematocrit 25.6 #L 41.0-53.0 % Mean Corpuscular Volume 69.9 L 80.0-100.0 fL Mean Corpuscular Hemoglobin 22.0 L 28.0-32.0 pg Mean Corpuscular Hemoglobin Concent 31.5 L 32.0-36.0 g/dL Red Cell Distribution Width 24.0 H 11.8-14.3 % Platelet Count 276 140-450 10^3/uL Mean Platelet Volume 8.2 6.9-10.8 fL Neutrophils (%) (Auto) 84.0 H 37.0-80.0 % Lymphocytes (%) (Auto) 7.7 L 10.0-50.0 % Monocytes (%) (Auto) 8.1 0.0-12.0 % Eosinophils (%) (Auto) 0.0 0.0-7.0 % Basophils (%) (Auto) 0.2 0.0-2.0 % Neutrophils # (Auto) 11.8 H 1.6-8.6 10 ^3/uL Lymphocytes # (Auto) 1.1 0.4-5.4 10 ^3/uL Monocytes # (Auto) 1.1 0-1.3 10 ^3/uL Eosinophils # (Auto) 0 0-0.8 10 ^3/uL Basophils # (Auto) 0 0-0.2 10 ^3/uL Nucleated Red Blood Cells 0.0 % Platelet Estimate Adequate Large Platelets Few Hypochromasia (manual) Moderate Anisocytosis (manual) Slight Microcytosis Moderate Ovalocytes Few Anais Cells Few Schistocytes Few Sodium Level 138 136-145 mmol/L Potassium Level 4.4 3.5-5.1 mmol/L Chloride Level 106 98-107 mmol/L Carbon Dioxide Level 26 20-31 mmol/L Anion Gap 6 5-15 Blood Urea Nitrogen 27 H 9-23 mg/dL Creatinine 0.98 0.700-1.30 mg/dL Glomerular Filtration Rate Calc 86 >90 mL/min BUN/Creatinine Ratio 27.6 H 10.0-20.0 Serum Glucose 122 H 74-106 mg/dL Calcium Level 8.8 8.7-10.4 mg/dL Stomatocytes Few Magnesium Level 2.0 1.6-2.6 mg/dL Total Bilirubin 0.3 0.2-1.0 mg/dL Aspartate Amino Transferase (AST) 14 13-40 U/L Alanine Aminotransferase (ALT) 11 7-40 U/L Alkaline Phosphatase 49 46-116 U/L Total Protein 5.5 L 5.7-8.2 g/dL Albumin 3.3 3.2-4.8 g/dL Microbiology Date/Time Source Procedure Growth Status 01/01/25 17:00 Nose MRSA Screen - Final Complete Assessment/Plan Assessment/Plan Currently patient's blood pressure normalized. Off of Levophed drip since this morning. We will DC the fluids. Advance diet as he tolerates. Physical therapy evaluation. For postop anemia I will start him on iron supplementation with vitamin-C. Otherwise resume his hypertensive medication lisinopril and hold for blood pressure less than 110. Given patient is clinically stable downgrade and transferred him to telemetry floor today. Follow the labs in the morning. Further clinical management per clinical course. Discussed with the nurse in the ICU regarding care plan. Plan discussed with: Other My Orders Orders - TEMO MACKEY MD Procedure Category Date Status Time Transfer Orders XFER 01/02/25 Transmitted 17:13 Pt Request For Service PT 01/02/25 Logged 17:21 Lisinopril Tablet PHA 01/03/25 Logged (Zestril Tablet) 10:00 Senna Pod Tablet PHA 01/02/25 Logged (Senokot Tablet) 22:00 Hemoglobin & LAB 01/03/25 Verified Hematocrit 05:00 Hemoglobin & LAB 01/04/25 Verified Hematocrit 05:00 Hemoglobin & LAB 01/05/25 Verified Hematocrit 05:00 Hemoglobin & LAB 01/06/25 Verified Hematocrit 05:00 Hemoglobin & LAB 01/07/25 Verified Hematocrit 05:00 Problem List: (1) Postoperative hypotension (2) Postoperative hypoxemia (3) HTN (hypertension) (4) Morbid obesity (5) CHF (congestive heart failure) TEMO MACKEY MD Jan 02, 2025 17:48
[2025-01-02] MEDS: SENNA 8.6 MG TAB PO SCH (21:57)
[2025-01-03] VITALS (8 sets, daily range): BP systolic 102–133; BP diastolic 62–76; PULSE 54–100; RESP 16–18; TEMP 97.9–98.6; O2SAT 91–96
[2025-01-03 07:45] LABS: Hemoglobin 8.3 g/dL (13.5-17.5)
[2025-01-03 07:49] LABS: Hematocrit 26.2 % (41.0-53.0)
[2025-01-03] MEDS: ASCORBIC ACID 500 MG TAB PO SCH (09:30)
[2025-01-03] MEDS: FERROUS SULFATE 300 MG/5 ML ORAL LIQ PO SCH (09:30)
[2025-01-03] MEDS: LISINOPRIL 20 MG TAB PO SCH (09:32)
--- NOTE | 2025-01-03 14:02 | DVHPN2 ---
Progress Note - Dictate Date Seen: Jan 03, 2025 Medical Necessity Reason Pt with a Central, PICC or Fol: No Subjective Clinically stable on the medical floor. Blood pressure is stable. Participating with physical therapy this afternoon. Hemoglobin is stable vital signs Vital Sign Date Time Temp Pulse Resp B/P (MAP) Pulse Ox O2 Delivery O2 Flow Rate FiO2 01/03/25 13:00 98.0 92 18 112/76 (88) 94 98.0 01/03/25 09:44 Nasal Cannula* 3 32 Total Intake and Output 01/02/25 01/02/25 01/03/25 15:00 23:00 07:00 Intake Total 1900 ml 640 ml 275 ml Output Total 950 ml 750 ml Balance 1900 ml -310 ml -475 ml medications Current Medications Medications Dose Ordered Sig/Inocencia Route Start Time Stop Time Status Last Admin Dose Admin Pregabalin 50 mg BID PO 01/01/25 22:00 01/03/25 09:31 50 MG Apixaban 2.5 mg BID PO 01/02/25 10:00 02/06/25 09:59 Acetaminophen 650 mg Q6HP PO 01/01/25 12:00 01/03/25 11:37 650 MG Ondansetron HCl 4 mg Q4HP PRN IV 01/01/25 10:30 Oxycodone HCl 5 mg Q4HP PRN PO 01/01/25 11:30 Oxycodone HCl 10 mg Q4HP PRN PO 01/01/25 11:30 01/02/25 21:59 10 MG Diphenhydramine HCl 25 mg Q4HP PRN IV 01/01/25 10:45 01/01/25 14:40 25 MG Pantoprazole Sodium 40 mg DAILY PO 01/02/25 10:00 01/03/25 09:30 40 MG Patient Own Medication 200 mg DAILY PO 01/02/25 10:00 Lisinopril 20 mg DAILY PO 01/03/25 10:00 Sennosides 8.6 mg HS PO 01/02/25 22:00 01/02/25 21:57 8.6 MG Ferrous Sulfate 300 mg DAILY PO 01/03/25 10:00 01/03/25 09:30 300 MG Ascorbic Acid 500 mg DAILY PO 01/03/25 10:00 01/03/25 09:30 500 MG objective Alert awake oriented to place and person. HEENT neck supple no elevated JVD. Heart regular rhythm S1 plus S2. Lungs fair mood without wheezing. Abdomen obese soft positive bowel sounds. Extremities no edema. laboratory and microbiology Laboratory Tests 01/03/25 07:22 01/02/25 04:00 Test 01/02/25 04:00 Range/Units Serum Glucose 122 H 74-106 mg/dL Assessment/Plan His hypotension is resolved now. Encouraged oral fluid intake. Continue iron tablets for anemia. Continue physical therapy. We will remove Almeida catheter in the morning once the PT has ambulator in. Social service consultation for assisted facility placement for PT. Otherwise continue rest of supportive care and treatment. Further management for clinical course. Discussed with the patient and the nurse regarding care plan. Problems(with codes): (1) Morbid obesity (2) Postoperative hypotension (3) Postoperative hypoxemia Plan discussed with: Patient TEMO MACKEY MD Jan 03, 2025 14:02
[2025-01-04] VITALS (7 sets, daily range): BP systolic 111–137; BP diastolic 65–74; PULSE 72–91; RESP 17–22; TEMP 36.6; O2SAT 93–96
[2025-01-04 07:00] LABS: Hematocrit 25.8 % (41.0-53.0); Hemoglobin 8.2 g/dL (13.5-17.5)
--- NOTE | 2025-01-04 09:46 | DVHSR ---
APPROVED REPORT EXAM: LIMITED Two-dimensional and M-mode echocardiogram with Doppler and color Doppler. Blood Pressure: 112/62 mmHg INDICATION chf RISK FACTORS Obesity: Height: 6'0, Weight: 328 DIMENSIONS LVDd4.0 (3.8-5.7cm)LA (2D) (1.9-4.0cm)Aortic Root3.7 (2.0-3.7cm) LVDs2.5 (2.5-4.0cm)LA (MM) (1.9-4.0cm)Aortic Cusp Exc1.3 (1.5-2.0cm) EF (%) 60.0 (55-70%)Rt. Atrium4.7 (1.9-4.0cm)Asc. Aorta3.7 cm IVSd1.4 (0.7-1.1cm)RV (D) (1.8-2.4cm) PWd1.5 (0.7-1.1cm) Mitral Valve MitralMitral Stenosis E wavem/sMV Mean GR.5mmHg A wavem/sMV Peak GR.11mmHg E/A ratio0.02D MVAcm2 Aortic Valve Aortic ValveAortic Stenosis V11.28m/[place] Mean GR.16mmHg V22.65m/[place] Peak GR.28mmHg LVOT Diameter1.9 (1.8-2.4cm)Doppler AVA1.37cm2 Pulmonic Valve V21.19m/s Other Information Quality : Technically LimitedRhythm : Technically limited study due to body habitus.patient position. Conclusion Technically difficult study. Difficult acoustic windows. Mild concentric LVH. Mild aortic sclerosis. Mild mitral annular calcification and thickening of the posterior mitral leaf let base. EF of 50% with normal RV function. Dopplers unremarkable. Small pericardial effusion not hemodynamically significant. No intracardiac masses thrombi or vegetations discernible.
[2025-01-04] MEDS ORDERED: ASPI-717 PO (12:49)
[2025-01-04] MEDS ORDERED: PANT40TA2 PO (12:49)
[2025-01-04] MEDS ORDERED: SENN-105 PO (12:49)
[2025-01-04] MEDS ORDERED: HYDR-4902 PO (12:49)
[2025-01-04] MEDS ORDERED: NALO4SPR2 (12:49)
--- NOTE | 2025-01-04 12:52 | DVHDS2 ---
Discharge Summary Date of Admission Jan 01, 2025 at 11:23 Date of Discharge: Jan 04, 2025 Labs/Diagnostic Data: Laboratory Results Test 01/04/25 06:07 01/02/25 04:00 01/01/25 15:44 01/01/25 10:40 Hemoglobin 8.2 g/dL (13.5-17.5) Hematocrit 25.8 % (41.0-53.0) White Blood Count 14.0 10^3/uL (4.4-10.8) Red Blood Count 3.67 10^6/uL (4.5-5.90) Mean Corpuscular Volume 69.9 fL (80.0-100.0) Mean Corpuscular Hemoglobin 22.0 pg (28.0-32.0) Mean Corpuscular Hemoglobin Concent 31.5 g/dL (32.0-36.0) Red Cell Distribution Width 24.0 % (11.8-14.3) Platelet Count 276 10^3/uL (140-450) Mean Platelet Volume 8.2 fL (6.9-10.8) Neutrophils (%) (Auto) 84.0 % (37.0-80.0) Lymphocytes (%) (Auto) 7.7 % (10.0-50.0) Monocytes (%) (Auto) 8.1 % (0.0-12.0) Eosinophils (%) (Auto) 0.0 % (0.0-7.0) Basophils (%) (Auto) 0.2 % (0.0-2.0) Neutrophils # (Auto) 11.8 10 ^3/uL (1.6-8.6) Lymphocytes # (Auto) 1.1 10 ^3/uL (0.4-5.4) Monocytes # (Auto) 1.1 10 ^3/uL (0-1.3) Eosinophils # (Auto) 0 10 ^3/uL (0-0.8) Basophils # (Auto) 0 10 ^3/uL (0-0.2) Nucleated Red Blood Cells 0.0 % Platelet Estimate Adequate Large Platelets Few Hypochromasia (manual) Moderate Anisocytosis (manual) Slight Microcytosis Moderate Ovalocytes Few [place] Cells Few Schistocytes Few Sodium Level 138 mmol/L (136-145) Potassium Level 4.4 mmol/L (3.5-5.1) Chloride Level 106 mmol/L (98-107) Carbon Dioxide Level 26 mmol/L (20-31) Anion Gap 6 (5-15) Blood Urea Nitrogen 27 mg/dL (9-23) Creatinine 0.98 mg/dL (0.700-1.30) Glomerular Filtration Rate Calc 86 mL/min (>90) BUN/Creatinine Ratio 27.6 (10.0-20.0) Serum Glucose 122 mg/dL (74-106) Calcium Level 8.8 mg/dL (8.7-10.4) Stomatocytes Few Magnesium Level 2.0 mg/dL (1.6-2.6) Total Bilirubin 0.3 mg/dL (0.2-1.0) Aspartate Amino Transferase (AST) 14 U/L (13-40) Alanine Aminotransferase (ALT) 11 U/L (7-40) Alkaline Phosphatase 49 U/L (46-116) Total Protein 5.5 g/dL (5.7-8.2) Albumin 3.3 g/dL (3.2-4.8) Other Laboratory Tests 01/04/25 06:07 01/02/25 04:00 Brief Hx & Hospital Course: This is a 64-year-old gentleman with a hypertension osteoarthritis of the bilateral hips admitted by orthopedic surgeon underwent a successful hip surgery. Postop patient noted to be hypotensive therefore admitted to the ICU. Hospitalist consultation is obtained for postop management. Currently patient is clinically stable in the ICU. Denies any chest pain dizziness or lightheadedness. He is admitted and underwent hip surgery. Postop hypotension resolved with IV fluid. He has moved out of the ICU. He is doing better. He is requesting to go home now to [facility] facility. Participate with physical therapy and ambulating with a walker without problems. Therefore he is being discharged home with home health and physical therapy. Patient is advised to follow up with his Orthopedic surgery in two weeks postop follow up evaluation. Patient verbalized understanding his hospital diagnosis, treatment he received, discharge medications, discharge instructions and agree with the discharge follow-up plan of care as mentioned. Consults/Reason for consult Operative Report - 2 Report Details Date: 01/01/25 Preop Diagnosis: Left hip degenerative arthritis Postop Diagnosis: Same Surgeon: Jose Eli MD Lithograph Press Operator Tinware: Minor HOWELL Anesthesiologist: Abner Anesthesia: Regional Drains: Francisco closed wound suction Implant: IsiahJoy origin size 15 stem, standard offset, minus four neck length, 36 delta head, flat polyethylene, 56 acetabular shell, one acetabular screw Consent: The patient was informed of the risks and benefits of the procedure. These include but are not limited to complications of anesthesia, postoperative infection, incomplete relief of symptoms, recurrence of symptoms, damage to blood vessels, nerves and tendons, deep venous thrombosis, pulmonary embolism and possible need for repeat surgery in the future. Complications: Hypotension Estimated Blood Loss: 700 cc Fluids: 1 unit packed red blood cells transfused, see anesthesia record for remainder Findings: Denuded cartilage with eburnated bone, osteophytes Indications for Surgery: Left hip degenerative arthritis with severe pain and functional impairment despite nonoperative management Name of Procedure Performed Left total hip arthroplasty Procedure Details Procedure Details: The patient was brought to the operating room and given spinal anesthetic with adequate analgesia obtained. The patient was positioned lateral decubitus with the operative side up, stabilized with hip positioners. Axillary roll applied and lower extremities well-padded. Preop patient received IV Ancef, cefepime and IV tranexamic acid. Surgical timeout was performed verifying patient, laterality and procedure. The hip and lower extremity were prepped and draped in sterile fashion. Incision was made over the greater trochanter. Subcutaneous dissection and hemostasis were performed with Bovie and aqua mantis. I identified the fascia which was incised with Bovie and Charnley retractor inserted. I identified the gluteus medius that was split at the junction of its anterior and middle thirds with Bovie then incised off the anterior greater trochanter. I incised the anterior gluteus minimus which was elevated off the capsule. I elevated the reflected head of the rectus. I then performed anterior capsulectomy with Bovie. I extended capsular incision posterior medially and superior laterally. The head was dislocated. Femoral neck cut was made with saw and head removed. Head diameter was calipered on the back table. I adjusted retractors to expose the acetabulum. I circumferentially removed labral tissue with Bovie. I removed foveal tissue with Bovie, curette and rongeur. I then began reaming sequentially paying attention to inclination and version as I went. I trialed which was stable so acetabular implant was brought into the field and tapped into the acetabulum with fair fixation achieved so I decided to place a screw for additional fixation. I had positioned the holes in the superior posterior quadrant and drilled, measured depth gauge and applied 25 mm acetabular screw. I then brought up the flat liner which was spun to make sure there was no soft tissue entrapment then tapped in and stability verified. I then brought my attention to the proximal femur. The leg was placed in the sterile bag anteriorly. I cleaned up soft tissue at the greater trochanter shoulder with Bovie. I then used a rongeur to clip the lateral neck. I then used a box osteotome, canal finder and lateralizing rasp. I sequentially broached to size 15. I revised the femoral neck cut with calcar planer. I trialed with a minus four neck length and [36] head which was stable. Intraoperative AP pelvis x-ray was obtained to verify length, offset and implant size. The hip was dislocated. Neck and head trial removed. Broach was removed. At this point there was a marked increase in deep bleeding. I used the Bovie, Surgiflo, and aqua Mantis to control bleeding though due to blood loss I did transfuse 1 unit of packed red blood cells. I tapped in the femoral implant with good fixation achieved. I cleaned and dried the Mei taper and tapped on the ceramic head. The hip was again reduced and tested for stability which was good. I irrigated with xperience. I placed a 2 grams of vancomycin in the deep and superficial wound. I repaired the minimus and medius to the anterior greater trochanter with #[5] FiberWire in running fashion . I oversewed the repair with 0 Vicryl. I repaired the fascia with #1 Ethibond interrupted [id number]. Deep subcutaneous tissue was closed with 0 Vicryl. Superficial subcutaneous tissue was closed with 2-0 Vicryl. The skin was closed with ernestina. I then applied the Francisco closed wound suction. Patient tolerated the procedure well and was brought to the recovery room in stable conditio Specimen: n. Condition Stable Operations or Procedures EXAM: LIMITED Two-dimensional and M-mode echocardiogram with Doppler and color Doppler. Blood Pressure: 112/62 mmHg INDICATION chf RISK FACTORS Obesity: Height: 6'0, Weight: 328 DIMENSIONS LVDd 4.0 (3.8-5.7cm) LA (2D) (1.9-4.0cm) Aortic Root 3.7 (2.0- 3.7cm) LVDs 2.5 (2.5-4.0cm) LA (MM) (1.9-4.0cm) Aortic Cusp Exc 1.3 (1.5- 2.0cm) EF (%) 60.0 (55-70%) Rt. Atrium 4.7 (1.9-4.0cm) Asc. Aorta 3.7 cm IVSd 1.4 (0.7-1.1cm) RV (D) (1.8-2.4cm) PWd 1.5 (0.7-1.1cm) Mitral Valve Mitral Mitral Stenosis E wave m/s MV Mean GR. 5mmHg A wave m/s MV Peak GR. 11mmHg E/A ratio 0.0 2D MVA cm2 Aortic Valve Aortic Valve Aortic Stenosis V1 1.28m/s AO Mean GR. 16mmHg V2 2.65m/s AO Peak GR. 28mmHg LVOT Diameter 1.9 (1.8-2.4cm) Doppler WM 1.37cm2 Pulmonic Valve V2 1.19m/s Other Information Quality : Technically Limited Rhythm : Technically limited study due to body habitus.patient position. Conclusion Technically difficult study. Difficult acoustic windows. Mild concentric LVH. Mild aortic sclerosis. Mild mitral annular calcification and thickening of the posterior mitral leaflet base. EF of 50% with normal RV function. Dopplers unremarkable. Small pericardial effusion not hemodynamically significant. No intracardiac masses thrombi or vegetations discernible. SIGNED BY: JAVIER SWANN Sr., MD SIGNED DATE/TIME: 01/04/25 0946 Condition at Discharge: Stable Final Diagnosis/Problems List Left hip degenerative arthritis status post ORIF hip, anemia, hypertension, diabetes mellitus type 2, GERD Discharge Disposition: Home with Health Services Discharge Instruct/Medications Diet: Consistent carbohydrate, Cardiac 2g Na,low cholest Activity: No Restrictions, As Tolerated Activity comment: With a front wheel walker Follow Up/Referral: With your orthopedic surgeon postop follow up after 10-14 days Medications: As prescribed and home medications per discharge med list New Medications: Aspirin Buffered (Gen Carb-Mag (Aspirin 325 mg) 1 Tab Tab 1 TAB PO DAILY, #20 TAB Hydrocodone-Acetaminophen (Hydrocodone Bitartrate/AC 5-325 mg) 1 Tab Tab 1 TAB PO Q4HPRN PRN, #20 TAB Naloxone HCl (Narcan) 4 Mg/0.1 Ml Spr 4 MG NA Q5MINP PRN, #1 SPRAY For excessive drowsiness/altered mentation while taking narcotics Senna (Senna) 8.6 Mg Tab 8.6 MG PO HS, #20 TAB Changed Medications: Pantoprazole Sodium Sesquihydr (Protonix) 40 Mg Tab 40 MG PO BID, #60 TAB (Changed from: DAILY; 30) Continued Medications: Albuterol Sulfate (Ventolin Mdi) 90 Mcg Ih 90 MCG IN DAILY, INH Amlodipine Besylate (Amlodipine Besylate) 5 Mg Tab 5 MG PO DAILY, TAB Ferrous Sulfate Dried (Feosol) 200 Mg Tab 200 MG PO DAILY, TAB Furosemide (Furosemide) 20 Mg Tab 1 TAB PO BID, #60 TAB 1 Refill Lisinopril (Lisinopril) 20 Mg Tab 20 MG PO, TAB Potassium Chloride (Klor-Con 8) 8 Meq Tab 8 MEQ PO BID, TAB Tamsulosin Hcl (Flomax) 0.4 Mg Cap 1 CAP PO HS, #30 CAP 11 Refills Discontinued Medications: Lisinopril (Lisinopril) 5 Mg Tab 5 MG PO DAILY for 30 Days, MG Discharge Statement: "Patient was advised to return to the ER or call 911 if any headaches, dizziness, shortness of breath, chest pain, abdominal pain, bleeding, fevers, or worsening of medical condition. Patient was counseled about treatment plan, medications, possible side effects, patientverbalized understanding. All questions were answered to the best of my ability. This discharge took greater then 30 minutes in planning, reviewing documentation, counseling the patient, and discussing with other team members." ASSESSMENT ASSESSMENT Assessment Left hip degenerative arthritis status post ORIF hip, anemia, hypertension, diabetes mellitus type 2, GERD TEMO MACKEY MD Jan 04, 2025 12:52
--- NOTE | 2025-01-04 13:49 | ECG ---
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
--- NOTE | 2025-01-04 14:03 | DVHPN2 ---
Progress Note - Dictate Date Seen: Jan 04, 2025 Medical Necessity Reason Pt with a Central, PICC or Fol: No Subjective Patient was lying comfortably in bed during my evaluation reports some postoperative hip pain that is being well managed with the help of pain medication. Patient reports that he was able to get up and walk with the help of physical therapy and his walker and was able to get around the nurses station and back to his bed with mild pain along the operative site. Patient is otherwise feeling well denying any other complaint or concern during my evaluation and would like to go home. vital signs Vital Sign Date Time Temp Pulse Resp B/P (MAP) Pulse Ox O2 Delivery O2 Flow Rate FiO2 01/04/25 13:00 97.8 91 17 113/73 (86) 94 97.8 01/04/25 10:15 Nasal Cannula 3.0 01/04/25 10:15 32 Total Intake and Output 01/03/25 01/03/25 01/04/25 15:00 23:00 07:00 Intake Total 900 ml 1800 ml Output Total 1200 ml Balance -300 ml 1800 ml medications Current Medications Medications Dose Ordered Sig/Inocencia Route Start Time Stop Time Status Last Admin Dose Admin Pregabalin 50 mg BID PO 01/01/25 22:00 01/04/25 09:53 50 MG Acetaminophen 650 mg Q6HP PO 01/01/25 12:00 01/04/25 11:56 650 MG Ondansetron HCl 4 mg Q4HP PRN IV 01/01/25 10:30 Oxycodone HCl 5 mg Q4HP PRN PO 01/01/25 11:30 Oxycodone HCl 10 mg Q4HP PRN PO 01/01/25 11:30 01/02/25 21:59 10 MG Diphenhydramine HCl 25 mg Q4HP PRN IV 01/01/25 10:45 01/01/25 14:40 25 MG Pantoprazole Sodium 40 mg DAILY PO 01/02/25 10:00 01/04/25 09:53 40 MG Lisinopril 20 mg DAILY PO 01/03/25 10:00 Sennosides 8.6 mg HS PO 01/02/25 22:00 01/03/25 22:10 8.6 MG Ferrous Sulfate 300 mg DAILY PO 01/03/25 10:00 01/04/25 09:53 300 MG Ascorbic Acid 500 mg DAILY PO 01/03/25 10:00 01/04/25 09:53 500 MG objective A&O x4 in no acute distress Hip range of motion grossly limited with pain on movement Francisco dressing clean, dry, intact, and maintaining suction No distal edema or calf tenderness to palpation Neurovascularly intact with cap refill less than 2 seconds laboratory and microbiology Laboratory Tests 01/04/25 06:07 01/02/25 04:00 Test 01/02/25 04:00 Range/Units Serum Glucose 122 H 74-106 mg/dL Assessment/Plan Patient to be discharged home and advised to remain weight-bearing as tolerated with the assistance of a walker. I also instructed the patient to maintain his dressing clean, dry, intact, and maintaining suction and to schedule a follow up with our office in 10-14 days for his 1st postoperative evaluation. I also advised the patient to call our office if he has any questions or concerns. Rx sent via our outpatient EMR system. Patient understood and agreed. Plan discussed with: Patient ABHAY CHAN Jan 04, 2025 14:03
== END 2025-01-04 19:25 | disposition home health service (06) | DRG 470 ==
LOC: SUR 06:10 → TELE 11:23 → ICU WEST 15:29 → WEST WING 01-02 18:28 → OVERFLOW 01-03 13:38 → TELE-WESTW 01-03 13:46
PROVIDERS: ADMIT Anesthesiology; ATTEND Orthopaedic Surgery
PROC: 30233N1 Transfusion of Nonautologous Red Blood Cells into Peripheral Vein, Percutaneous Approach (ICD-10-PCS; 2025-01-01)
PROC: 5A09357 Assistance with Respiratory Ventilation, Less than 24 Consecutive Hours, Continuous Positive Airway Pressure (ICD-10-PCS; 2025-01-01)
PROC: 0SRB04Z Replacement of Left Hip Joint with Ceramic on Polyethylene Synthetic Substitute, Open Approach (ICD-10-PCS; principal; 2025-01-01 07:39)
DX: M16.0 Bilateral primary osteoarthritis of hip (principal); Z68.42 Body mass index [BMI] 45.0-49.9, adult; D62 Acute posthemorrhagic anemia; I11.0 Hypertensive heart disease with heart failure; I50.9 Heart failure, unspecified; Z82.49 Family history of ischemic heart disease and other diseases of the circulatory system; J44.9 Chronic obstructive pulmonary disease, unspecified; I48.91 Unspecified atrial fibrillation; Z82.3 Family history of stroke; E66.01 Morbid (severe) obesity due to excess calories; K21.9 Gastro-esophageal reflux disease without esophagitis; E11.9 Type 2 diabetes mellitus without complications; Z79.4 Long term (current) use of insulin; Z79.899 Other long term (current) drug therapy
CPT/HCPCS: 36415; 72170; 73501; 80048; 80053; 83735; 85014; 85018; 85025; 86850; 86900; 86901; 86920; 87081; 93005; 93306; 97110; 97116; 97163; 97530; G0378; J1885; J2250; J2704; J3490